=== PATIENT | female | born 1960 | race Caucasian/White ===

== ENCOUNTER 2016-10-05 08:23 | Inpatient (IN) | payer OTHER ==
[2016-09-19 11:00] VITALS: BMI 43.0
--- NOTE | 2016-09-19 11:33 | PAT Medication Instructions ---
Service Date Sep 19, 2016. Current Home Medication List Amitriptyline Hcl (Elavil), 50 MG PO BID Aspirin (Aspirin Ec), 81 MG PO QAM Baclofen (Lioresal), 10 MG PO TID Cholecalciferol (Vitamin D3), 1 TAB PO QAM Citalopram Hydrobromide (Celexa), 20 MG PO QAM Dicyclomine Hcl (Bentyl), 20 MG PO QAM Gabapentin (Neurontin), 800 MG PO TID Lorazepam (Ativan), 0.5 MG PO HS Mesalamine (Lialda), 2 TAB PO BID Montelukast Sodium (Singulair), 10 MG PO QAM Pantoprazole (Protonix), 40 MG PO QAM Temazepam (Restoril), 15 MG PO HS Medication Instructions For Your Scheduled Surgery - Check with surgeon/rake operator for instructions: Mesalamine (Lialda), 2 TAB PO BID - Hold the following medications the morning of surgery: Montelukast Sodium (Singulair), 10 MG PO QAM Dicyclomine Hcl (Bentyl), 20 MG PO QAM Cholecalciferol (Vitamin D3), 1 TAB PO QAM Baclofen (Lioresal), 10 MG PO TID - Take the following medications the morning of surgery with a sip of water: Pantoprazole (Protonix), 40 MG PO QAM Gabapentin (Neurontin), 800 MG PO TID Citalopram Hydrobromide (Celexa), 20 MG PO QAM Amitriptyline Hcl (Elavil), 50 MG PO BID Aspirin (Aspirin Ec), 81 MG PO QAM (unless otherwise okay per surgeon) - Take the following medications as scheduled the night before surgery: Temazepam (Restoril), 15 MG PO HS Lorazepam (Ativan), 0.5 MG PO HS Gabapentin (Neurontin), 800 MG PO TID Baclofen (Lioresal), 10 MG PO TID Amitriptyline Hcl (Elavil), 50 MG PO BID If you have any questions please call us at [phone] (Sadie Valenzuela PA-C) or [phone] or [phone]
[2016-09-19 12:27] LABS: BASO % 0.8 %; BASO ABS # 0.05 K/uL (0-0.2); COMPLETE YES; EOS % 4.1 %; HEMATOCRIT 38.7 % (37-47); IG% 0.5 %; LYMPH % 32.9 %; LYMPH ABS # 2.16 K/uL (1.2-3.4); MEAN CELL VOLUME 89.4 fL (80-100); MEAN CORPUSCULAR HEMOGLOBIN 29.3 pg (25-34); MEAN CORPUSCULAR HGB CONC 32.8 g/dl (32-36); NEUT % 56.7 %; PLATELET COUNT 331 K/uL (130-400); RED BLOOD COUNT 4.33 M/uL (4.2-5.4); WHITE BLOOD COUNT 6.56 K/uL (4.8-10.8)
[2016-09-19 12:29] LABS: URINE APPEARANCE CLEAR (CLEAR); URINE BILIRUBIN NEG (NEG); URINE COLOR YELLOW; URINE NITRITE NEG (NEG); URINE SPECIFIC GRAVITY 1.004 (1.000-1.030); UROBILINOGEN NEG (NEG)
[2016-09-19 12:46] LABS: MANUAL MICROSCOPIC REQUIRED? NO; REVIEW REQ? NO
[2016-09-19 12:56] LABS: BUN/CREATININE RATIO 12.7 (10-20); CALCIUM 8.9 mg/dl (8.5-10.1); CREATININE 0.75 mg/dl (0.60-1.20); POTASSIUM 4.3 mmol/L (3.5-5.1)
--- NOTE | 2016-10-03 12:32 | HISTORY & PHYSICAL EXAMINATION ---
DATE OF ADMISSION: 10/05/2016 The patient presents to our office with a complaint of right sciatica and chronic back pain. It has been ongoing for 3 years. It is progressively worsening. MEDICAL HISTORY: Significant for inflammatory bowel disease, obesity, spinal stenosis. SURGICAL HISTORY: Significant for bladder cancer in 2014 and hysterectomy. ALLERGIES: PENICILLIN. MEDICATIONS: Include pantoprazole 40 mg a day, baclofen 10 mg t.i.d., Lialda 1.2 grams 2 tablets twice a day, duloxetine HCL 60 mg a day, amitriptyline 50 mg twice a day, terbinafine 250 mg every other day for 3 months, gabapentin 800 mg t.i.d., vitamin D3, Zofran, Carafate 10 mg, temazepam 50 mg, Ativan 0.5 mg p.r.n. SOCIAL HISTORY: She does not work. She is . Denies alcohol. Denies tobacco. FAMILY HISTORY: Significant for diabetes, hypertension, high cholesterol. REVIEW OF SYSTEMS: Significant for chills, fatigue, night sweats, weakness, weight gain, ringing in ears, diarrhea, nausea, vomiting, anxiety, depression, difficulty walking, dizziness, poor coordination, memory loss and muscle weakness. PHYSICAL EXAMINATION: VITAL SIGNS: She is 5 foot 3, 230 pounds. HEENT: Speech appropriate. CARDIOPULMONARY: No gross abnormalities. ABDOMEN: Soft, nondistended. GENITOURINARY: Deferred. NEUROLOGIC: Cranial nerves II-XII grossly intact. MUSCULOSKELETAL: She ambulates with an antalgic gait. Strength is intact bilateral lower extremities. ASSESSMENT: Degenerative changes, chronic pain. PLAN: At this point in time, she has failed conservative therapy and may consider surgical intervention. Surgery would require lumbar decompression and fusion L4-L5 and L5-S1. Risks, benefits, pros, cons, and alternatives were outlined in detail. She would like to proceed with the above-mentioned surgical intervention.
[~2016-10-05] VITALS: Ht 162.6 cm; Wt 113.7 kg
--- NOTE | 2016-10-05 07:28 | History & Physical Bridge Note ---
H&P Re-Evaluation Bridge Note: I have examined the patient, reviewed the History & Physical and in the interval since the performance of the History & Physical I have noted the following changes of clinical significance: No changes noted
[~2016-10-05 08:23] MED LIST: AMT50 PO; ANCEF: ALLERGY NOTED TO ORDERED MEDICATION SCH; ASPI81TA28 PO; BACL10TA PO; CEFAZOLIN 2000 MG/60 ML D5W IV SCH; CHOL1000 PO; CITA20TA9 PO; DICY20TA35 PO; GABA800T PO; LACTATED RINGER'S 1000ML 1,000 ML IV SCH; LORA-741 PO; MESA1.2T PO; MONT1TAB3 PO; PANT40TA PO; TEMA15CA4 PO
[2016-10-05 09:24] VITALS: BP 112/63; PULSE 77; TEMP 37.1; O2SAT 96; Ht 162.6 cm; Wt 113.7 kg
[2016-10-05] MEDS ORDERED: ROCURONIUM BROMIDE 10 MG/ML 5 ML VIAL ONE (11:20)
[2016-10-05] MEDS ORDERED: DEXAMETHASONE SOD INJ 4 MG/ML VIAL ONE (11:20)
[2016-10-05] MEDS ORDERED: LIDOCAINE HCL 2% 2 ML VIAL (20MG/ML) ONE (11:20)
[2016-10-05] MEDS ORDERED: ONDANSETRON INJ 2 MG/ML 2 ML VIAL ONE (11:20)
[2016-10-05] MEDS ORDERED: ETOMIDATE 2 MG/ML 20 ML VIAL IV ONE (11:20)
[2016-10-05] MEDS ORDERED: MIDAZOLAM HCL 1 MG/ML 2ML VIAL ONE (11:21)
[2016-10-05] MEDS ORDERED: FENTANYL CITRATE INJ 50 MCG/1 ML 2 ML VIAL ONE (11:21)
[2016-10-05] MEDS ORDERED: NURSING VERBAL MED ORDER ONE (12:00)
[2016-10-05] MEDS ORDERED: CLINDAMYCIN IV 900 MG in DEXTROSE 5% ADD-VANTAGE 100ML 100 ML IV SCH (12:15)
[2016-10-05] MEDS ORDERED: HYDROmorphone INJ 2 MG/ML SYR/VIAL ONE (12:16)
[2016-10-05] MEDS ORDERED: FENTANYL CITRATE INJ 50 MCG/1 ML 2 ML VIAL IV PRN (13:00)
[2016-10-05] MEDS ORDERED: ONDANSETRON INJ 2 MG/ML 2 ML VIAL IV PRN ×2 (13:00→14:15)
[2016-10-05] MEDS ORDERED: ATROPINE SULFATE 0.1 MG/ML 5ML SYR IV PRN (13:00)
[2016-10-05] MEDS ORDERED: EpHEDrine SULFATE INJ 50 MG/ML AMP IV PRN (13:00)
[2016-10-05] MEDS ORDERED: HYDROmorphone INJ 1 MG/ML SYR IV PRN (13:00)
[2016-10-05] MEDS ORDERED: NEOSTIGMINE METHYLSULFATE 5 MG/5 ML SYR ONE (13:57)
[2016-10-05] MEDS ORDERED: GLYCOPYRROLATE INJ 0.2 MG/ML VIAL ONE (13:57)
[2016-10-05] MEDS ORDERED: SODIUM CHLORIDE 0.9% 1000ML 1,000 ML IV SCH (14:03)
--- NOTE | 2016-10-05 14:03 | [facility] Post Operative Brief Note ---
Immediate Operative Summary Operative Date Oct 05, 2016. Pre-Operative Diagnosis Degenerative changes, chronic pain Post-Operative Diagnosis Degenerative changes, chronic pain Procedure(s) Performed tlif Surgeon DR. Emerson Hernandez Stock Or Delivery Clerk Surgeon(s) Anitha Hess PA-C Estimated Blood Loss 200 Findings stenosis Specimens none per surgeon
[2016-10-05] MEDS ORDERED: LABETALOL HCL IV 5 MG/ML 20ML ONE (14:07)
--- NOTE | 2016-10-05 14:11 | DIAGNOSTIC IMAGING REPORT ---
LUMBAR SPINE, INTRAOPERATIVE FLUOROSCOPY HISTORY: L4 S1 decompression and fusion. FLUOROSCOPY TIME: 17 seconds. FINDINGS: Intraoperative fluoroscopy was provided for the lumbar spine. 2 fluoroscopic spot images were obtained. Posterior decompression fusion from L4 through S1 with pedicle screws and rods. The hardware appears intact. IMPRESSION: Fluoroscopy provided for a L4-S1 posterior decompression and fusion. Electronically signed by: Willem Monsalve M.D. 10/05/2016 2:10 PM Dictated Date/Time: 10/05/2016 2:09 PM
[2016-10-05] MEDS ORDERED: FLOSEAL HEMOSTATIC MATRIX 10ML TOP ONE (14:12)
[2016-10-05] MEDS ORDERED: BUPIVACAINE/EPINEPHRINE 0.5% MPF 1:200,000 30 ML VIAL INJ ONE (14:12)
[2016-10-05] MEDS ORDERED: BACITRACIN 50000 UNIT VIAL IR ONE (14:12)
[2016-10-05] MEDS ORDERED: MAGNESIUM HYDROXIDE SUSP 30 ML UDC PO PRN (14:15)
[2016-10-05] MEDS ORDERED: ACETAMINOPHEN IV 100 ML IV PRN (14:15)
[2016-10-05] MEDS ORDERED: SOD PHOSPHATE/SOD BIPHOSPHATE ENEMA 132 ML BTL PR PRN (14:15)
[2016-10-05] MEDS ORDERED: ACETAMINOPHEN 500 MG TAB PO PRN (14:15)
[2016-10-05] MEDS ORDERED: DO NOT ADMINISTER FLU VACCINE PRN ×3 (14:15)
[2016-10-05] MEDS ORDERED: METOCLOPRAMIDE HCL INJ 5 MG/ML 2 ML VIAL IV PRN (14:15)
[2016-10-05] MEDS ORDERED: NALOXONE HCL 0.4 MG/1 ML VIAL/CARP IV PRN ×2 (14:15)
[2016-10-05] MEDS ORDERED: FAMOTIDINE 20 MG TAB PO PRN (14:15)
[2016-10-05] MEDS ORDERED: BISACODYL 10 MG SUPP PR PRN (14:15)
[2016-10-05] MEDS ORDERED: ALUMINUM/MAGNESIUM SUSP 30 ML UDC PO PRN (14:15)
[2016-10-05] MEDS ORDERED: DO NOT ADMINISTER PNEUMOCOCCAL VACCINE PRN ×2 (14:15)
[2016-10-05] MEDS ORDERED: PROMETHAZINE HCL INJ 12.5 MG in SODIUM CHLORIDE 0.9% 50ML 50 ML IV PRN (14:15)
[2016-10-05] MEDS ORDERED: LORAZEPAM 0.5 MG TAB PO PRN (14:15)
[2016-10-05] MEDS ORDERED: LORAZEPAM INJ 0.5 MG in SYRINGE 0.75 ML IV PRN (14:15)
[2016-10-05] MEDS ORDERED: hydrOXYzine HCL 25 MG TAB PO PRN (14:15)
--- NOTE | 2016-10-05 14:28 | OPERATIVE REPORT ---
DATE OF OPERATION: 10/05/2016 PREOPERATIVE DIAGNOSES: Spinal stenosis, spondylolisthesis L5-S1. POSTOPERATIVE DIAGNOSIS: Same. PROCEDURE PERFORMED: 1. Lumbar decompression, medial facetectomy, and foraminotomy L3-4, L4-5, L5-S1. 2. Posterior spinal fusion L4-5, L5-S1. 3. Placement posterior segmental instrumentation using Orthros rods and screws, a crosslink L4-5 and L5-S1. 4. Interbody fusion L5-S1. 5. Placement of PEEK cage 12 x 26 mm L5-S1. 6. Placement of locally harvested morselized autograft posterior gutters. 7. Placement of Infuse collagen sponge combined with Mastergraft in posterior gutters and Lindy bone graft in the interbody space. SURGEON: Dr. Emerson Hernandez. CHEMISTRY ACCOUNT MANAGER: Anitha Tapia PA-C. ANESTHESIA: General. DISPOSITION: The patient awakened and taken to PACU in stable condition. HISTORY OF PATIENT'S PROBLEMS: This is a 56-year-old female that presents with above-mentioned diagnosis after failing an extensive course of nonoperative care, elected to undergo the above-mentioned procedure. Risks, benefits, pros, cons, and alternatives were outlined in detail preoperatively. PROCEDURE: The patient was met with preoperatively, case discussed and all questions were addressed. At that point the patient was taken back to operative suite and after undergoing successful general endotracheal intubation via department of anesthesia, she was placed in prone position on Ced table atop a Marvin frame. All bony prominences were padded and the eyes were inspected to ensure there was no external pressure placed upon them. At this point, lumbar spine was prepped and draped in normal sterile fashion. Sharp dissection with the assistance of Bovie cautery performed down to and exposing the lamina and transverse processes of L4, L5 and sacral ala bilaterally. From a caudal to cephalad fashion, complete laminectomy of L5, L4 and partial laminectomy of L3 was performed addressing severe lateral recess and foraminal stenosis. There is particularly marked facet hypertrophy at the L5-S1 level and did of her spondylolisthesis. Pedicle screws. Screws were then placed in L4, L5 and S1 levels bilaterally with the assistance of fluoroscopy and appropriate size julio provisionally placed. Through a transforaminal approach on the right, a complete diskectomy of L5-S1 was performed, endplates curetted to subcortical bleeding bone and a 12 x 26 mm PEEK cage filled with Lindy bone grafting tapped into position. The rods were then locked into final position bilaterally and transverse processes of L4, L5 and S1 levels burred to subcortical bleeding bone. Infuse collagen sponge combined with Mastergraft and locally harvested morselized autograft was placed in the posterior gutters, crosslink locked into position, 7 flat BAMBI drain inserted. Incision was closed with 1-0 Vicryl in the fascia, 2-0 Vicryl subcutaneously, 4-0 Monocryl for final skin closure. Steri-Strips and sterile dressing placed. The patient was awakened and taken to PACU in stable condition. Please note Anitha Tapia was present throughout the entire surgical procedure. Due to the complex nature of the procedure, the entire surgery was performed with the psychiatric nursing assistant of BAMBI Che. The accounting administrative assistant, under direct supervision, was involved in the actual performance of all aspects of the surgical procedure including hemostasis, tissue retraction and incision, instrument management, patient positioning, and wound closure. I attest to the content of the Intraoperative Record and any orders documented therein. Any exceptio ns are noted below.
[2016-10-05] MEDS: HYDROmorphone HCL 0.5MG/ML 50 ML CASSETTE IV PRN ×3 (14:45→19:11)
--- NOTE | 2016-10-05 15:35 | Anesthesiology Progress Note ---
Anesthesia Post Op Note Date & Time Oct 05, 2016 at 15:35 Vital Signs Pain Intensity: 0 Vital Signs Past 12 Hours Date Time Temp Pulse Resp B/P Pulse Ox O2 Delivery O2 Flow Rate FiO2 10/05/16 15:25 80 16 98 10/05/16 15:25 80 16 10/05/16 15:20 78 16 96 10/05/16 15:20 79 16 10/05/16 15:15 81 16 10/05/16 15:15 81 16 119/82 97 10/05/16 15:14 84/67 10/05/16 15:11 37.1 10/05/16 15:10 81 16 97 10/05/16 15:10 81 16 10/05/16 15:09 80 16 10/05/16 15:09 79 16 97 10/05/16 15:08 129/76 10/05/16 15:04 82 16 97 10/05/16 15:04 81 16 10/05/16 15:03 135/60 10/05/16 14:59 83 14 97 10/05/16 14:59 83 14 10/05/16 14:58 127/60 10/05/16 14:54 90 20 97 10/05/16 14:54 86 20 10/05/16 14:53 85 16 98 10/05/16 14:53 85 16 10/05/16 14:48 86 18 10/05/16 14:48 86 18 142/73 99 10/05/16 14:43 89 15 10/05/16 14:43 89 15 132/84 99 10/05/16 14:38 89 20 10/05/16 14:38 89 20 128/78 99 10/05/16 14:33 93 20 132/66 100 10/05/16 14:33 93 20 10/05/16 14:28 97 14 152/91 99 10/05/16 14:28 97 14 10/05/16 14:28 36.8 96 14 141/89 99 Mask 10 10/05/16 09:24 37.1 77 18 112/63 96 Room Air Notes Mental Status: alert / awake / arousable, participated in evaluation Pt Amnestic to Procedure: Yes Nausea / Vomiting: adequately controlled Pain: adequately controlled Airway Patency, RR, SpO2: stable & adequate BP & HR: stable & adequate Hydration State: stable & adequate Anesthetic Complications: no major complications apparent
[2016-10-05 18:15] VITALS: BP 113/62; PULSE 65; TEMP 36.4; O2SAT 98
[2016-10-05 18:48] VITALS: BP 120/66; PULSE 65; TEMP 36.5; O2SAT 96
[2016-10-05] MEDS: LACTATED RINGER'S 1000ML 1,000 ML IV SCH (19:31)
[2016-10-05 19:46] VITALS: BP 106/65; PULSE 71; TEMP 36.5; O2SAT 98
[2016-10-05] MEDS: CLINDAMYCIN IV 600 MG in DEXTROSE 5% ADD-VANTAGE 50ML 50 ML IV SCH (20:18)
[2016-10-05] MEDS: DEXAMETHASONE INJ 6 MG in SYRINGE 0 ML IV SCH (20:18)
[2016-10-05] MEDS: BACLOFEN 10 MG TAB PO SCH (20:18)
[2016-10-05] MEDS: TEMAZEPAM 15 MG CAP PO SCH (20:29)
[2016-10-05] MEDS: GABAPENTIN 800 MG TAB PO SCH (20:30)
[2016-10-05] MEDS: AMITRIPTYLINE HCL 50 MG TAB PO SCH (20:30)
[2016-10-05] MEDS: DOCUSATE SODIUM/SENNA 50/8.6MG TAB PO SCH (20:31)
[2016-10-05 21:00] VITALS: BP 121/66; PULSE 81; TEMP 36.6; O2SAT 96
[2016-10-05 23:35] VITALS: BP 126/72; PULSE 86; TEMP 36.9; O2SAT 96
[2016-10-06] MEDS: LACTATED RINGER'S 1000ML 1,000 ML IV SCH (02:54)
[2016-10-06 03:45] VITALS: BP 117/71; PULSE 82; TEMP 37.1; O2SAT 95
[2016-10-06] MEDS: CLINDAMYCIN IV 600 MG in DEXTROSE 5% ADD-VANTAGE 50ML 50 ML IV SCH (03:55)
[2016-10-06] MEDS: DEXAMETHASONE INJ 6 MG in SYRINGE 0 ML IV SCH ×2 (03:55→11:49)
[2016-10-06] MEDS ORDERED: DC PCA ONE (06:00)
[2016-10-06] MEDS ORDERED: HYDROmorphone INJ 1 MG/ML SYR IV PRN (06:01)
[2016-10-06 07:13] LABS: COMPLETE YES; HEMATOCRIT 38.6 % (37-47); IG% 0.6 %; LYMPH % 6.4 %; LYMPH ABS # 1.04 K/uL (1.2-3.4); MEAN CELL VOLUME 90.2 fL (80-100); MEAN CORPUSCULAR HEMOGLOBIN 29.9 pg (25-34); MEAN CORPUSCULAR HGB CONC 33.2 g/dl (32-36); MEAN PLATELET VOLUME 9.1 fL (7.4-10.4); MONO % 1.3 %; NEUT % 91.7 %; PLATELET COUNT 351 K/uL (130-400); RED BLOOD COUNT 4.28 M/uL (4.2-5.4); WHITE BLOOD COUNT 16.34 K/uL (4.8-10.8)
[2016-10-06 07:41] VITALS: BP 110/73; PULSE 83; TEMP 37; O2SAT 94
[2016-10-06 07:51] LABS: BUN/CREATININE RATIO 18.6 (10-20); CALCIUM 8.6 mg/dl (8.5-10.1); CREATININE 0.72 mg/dl (0.60-1.20); POTASSIUM 4.2 mmol/L (3.5-5.1)
[2016-10-06] MEDS: DICYCLOMINE HCL 20 MG TAB PO SCH (08:07)
[2016-10-06] MEDS: OXYCODONE HCL IR 5 MG TAB (IMMEDIATE RELEASE) PO PRN ×3 (08:07→20:02)
[2016-10-06] MEDS: GABAPENTIN 800 MG TAB PO SCH ×3 (08:07→20:03)
[2016-10-06] MEDS: PANTOprazole SOD 40 MG TAB PO SCH (08:07)
[2016-10-06] MEDS: AMITRIPTYLINE HCL 50 MG TAB PO SCH ×2 (08:07→20:03)
[2016-10-06] MEDS: ASPIRIN 81 MG ECTAB PO SCH (08:07)
[2016-10-06] MEDS: BACLOFEN 10 MG TAB PO SCH ×3 (08:08→20:03)
[2016-10-06] MEDS: MONTELUKAST SOD 10 MG TAB PO SCH (08:08)
[2016-10-06] MEDS: CITALOPRAM 20 MG TAB PO SCH (08:08)
[2016-10-06] MEDS ORDERED: RXC5 PO (08:23)
--- NOTE | 2016-10-06 08:24 | Discharge Instructions ---
Discharge Instructions Admission Reason for Admission: Lumbar Spinal Stenosis Discharge Discharge Diagnosis / Problem: stenosis Discharge Goals Goal(s): Improve function Activity Recommendations Activity Limitations: per Instructions/Follow-up section ACTIVITY RECOMMENDATIONS: SELF CARE INSTRUCTIONS AFTER THORACIC/LUMBAR FUSIONS 1. You may walk to your tolerance. It is good exercise for your legs and back. Expect some back and intermittent leg aches and pains. 2. You may perform "counter-top" level activities (make a sandwich, emmett with a project, etc.). 3. No bending or lifting of more than 10 pounds or back twisting of any nature (roll like a log when turning in bed). 4. You may ride in a car for 20-30 minutes at a time. No driving until after your first visit with your doctor. 5. Frequent changes of position and restricting sitting to 30 minutes at a time will help limit the amount of back spasms and stiffness you may experience. 6. You may discontinue the use of ambulatory aids (cane, crutches, etc.) once your strength and confidence allow. 7. You may adjunct psychology instructor the shower and let water strike your incision when you arrive home at least once daily. Do not take a tub bath, sit in a hot tub or go into a swimming pool until after your first recheck in the office. SPECIAL CARE INSTRUCTIONS: VERY IMPORTANT TO READ AND REVIEW A. Your surgical incision has been closed with a cosmetic suture under the skin that will dissolve in about 6 weeks. In 14 days, you can use a pair of clean scissors and cut the suture that is left outside of the skin at the ends of your incision. 1. The small skin tapes can be removed 7 days after surgery if they have not fallen off by that point. 2. You may keep the wound open to air as much as possible to promote healing after post-op day number 5 unless told otherwise by your doctor. 3. If you think the wound looks like it is becoming infected (redness or worsening drainage) and/or you are experiencing fever, chill or worsening back pain and muscle spasms, contact the office so that we may evaluate you as soon as possible. B. Complications are uncommon, but please contact us if you have any signs or symptoms of: 1. wound infection (fever higher than 102.5 degrees F, redness, separation of wound, drainage, or increasing pain from the incision) 2. blood clots in legs (pain, swelling, redness and warmth in legs) 3. urinary tract infection (fever higher than 102.5 degrees F, burning upon urination or increased frequency of urination) 4. nerve problems (inability to walk on your toes or heels, numbness, loss of bowel or bladder control) 5. any other symptoms that concern you C. Please call the office at if you have any concerns or questions about your operation or recovery. D. No smoking! Smoking drastically decreases the chance of a solid fusion. E. Do not take any anti-inflammatory medications (Indocin, Advil, Motrin, Aspirin, Naprosyn, etc.) as these may inhibit the chance of a solid fusion. Tylenol is okay to take for pain. MANAGING PAIN AFTER SPINAL SURGERY 1. Narcotic medication is intended for short-term use and will be provided for surgical pain. Surgical pain usually lasts for a period of 4-6 weeks. Narcotic medication includes Percocet, Vicodin, Darvocet, Tylenol #3 or Lortab. 2. Longer-term pain is more appropriately treated with non-narcotic medication such as Tylenol ES. 3. Muscle spasm is not appropriately treated with narcotics. Muscle relaxers such as Soma, Flexeril or Skelaxin can be used along with Tylenol ES. 4. Remember that we all live with some "aches and pains". This is not unusual or uncommon after an injury or as we get older. a. Back pain is expected and may include muscle spasms for 4 to 6 weeks after surgery. The pain should gradually improve. If the pain worsens for no apparent reason, please contact the office. b. Intermittent leg pain may also be experienced and should not be concerned about unless it worsens for no apparent reason. If so, please contact the office. 5. We will provide appropriate medication within the normal guidelines of their prescribed use. We will also be very cautious and aware of potential abuse and extended duration of patients' medication needs. a. Pain medications are for your comfort and to assist with sleep and rest so that the tissue can heal. They are not provided in order to return to normal activity and should not be used through the day. To do so or worsening pain at night can result from ongoing tissue damage and development of tolerance to the prescribed medicine. 6. Please allow 2-3 days to process refills. Prescriptions will not be mailed but must be picked up at the office. FOLLOW UP VISIT: Keep your scheduled follow-up appointment. Any questions, please call the office at . . Current Hospital Diet Patient's current hospital diet: Regular Diet Discharge Diet Recommended Diet: Regular Diet Procedures Procedures Performed: L4-5, L5-S1 Lumbar Decompression/Laminectomy, Discectomy, Placement of Interbody Spacer L5-S1, Pedicle Screw Fixation of Bone Graft, with Lindy Allograft, Application of Bone Morphogenetic Protein, and Posterolateral Gutter Fusion Pending Studies Studies pending at discharge: no Medical Emergencies . Who to Call and When: Medical Emergencies: If at any time you feel your situation is an emergency, please call 911 immediately. . Non-Emergent Contact Non-Emergency issues call your: Primary Care Provider . "Provider Documentation" section prepared by Emerson Hernandez. VTE Core Measure Inpt VTE Proph given/why not?: Gunjan Hutton, RAS[facility]
--- NOTE | 2016-10-06 08:56 | Anesthesiology Progress Note ---
Anesthesia Post Op Note Date & Time Oct 06, 2016 at 08:55 Vital Signs Pain Intensity: 10.0 Vital Signs Past 12 Hours Date Time Temp Pulse Resp B/P Pulse Ox O2 Delivery O2 Flow Rate FiO2 10/06/16 08:00 Room Air 10/06/16 07:41 37.0 83 16 110/73 94 Room Air 10/06/16 03:45 37.1 82 16 117/71 95 Nasal Cannula 4.0 10/05/16 23:35 36.9 86 16 126/72 96 Nasal Cannula 4.0 10/05/16 21:00 36.6 81 16 121/66 96 Nasal Cannula 4.0 Notes Mental Status: alert / awake / arousable, participated in evaluation Pt Amnestic to Procedure: Yes Nausea / Vomiting: adequately controlled Pain: adequately controlled Airway Patency, RR, SpO2: stable & adequate BP & HR: stable & adequate Hydration State: stable & adequate Anesthetic Complications: no major complications apparent
[2016-10-06 10:04] VITALS: BP 130/77; PULSE 94; O2SAT 94
[2016-10-06] MEDS ORDERED: NURSING VERBAL MED ORDER ONE (10:15)
--- NOTE | 2016-10-06 14:15 | PROGRESS NOTE ---
DATE: 10/06/2016 Postop day #1. Back pain controlled. Leg pain improved. Vital signs stable. T-max 37.1. BAMBI drained 175 mL. Hematocrit this a.m. is 38.6. PHYSICAL EXAMINATION: The patient has good strength to testing. Appears comfortable. ASSESSMENT: Status post multilevel lumbar decompression and fusion. PLAN: At this time, will continue physical therapy, advance her bowel regimen and anticipate home latter half of this weekend with home health.
[2016-10-06 15:23] VITALS: BP 132/61; PULSE 89; TEMP 37.1; O2SAT 95
[2016-10-06 16:15] VITALS: O2SAT 95
[2016-10-06] MEDS: DOCUSATE SODIUM/SENNA 50/8.6MG TAB PO SCH (20:03)
[2016-10-06] MEDS: TEMAZEPAM 15 MG CAP PO SCH (20:05)
[2016-10-06 23:10] VITALS: BP 102/68; PULSE 86; TEMP 36.9; O2SAT 91
[2016-10-07] MEDS: OXYCODONE HCL IR 5 MG TAB (IMMEDIATE RELEASE) PO PRN ×3 (04:45→12:27)
[2016-10-07] MEDS: POLYETHYLENE (MIRALAX) 17 GM PACK PO SCH ×2 (04:45→12:00)
[2016-10-07 07:39] VITALS: BP 125/67; PULSE 86; TEMP 36.9; O2SAT 100
[2016-10-07] MEDS: GABAPENTIN 800 MG TAB PO SCH (08:31)
[2016-10-07] MEDS: MONTELUKAST SOD 10 MG TAB PO SCH (08:31)
[2016-10-07] MEDS: PANTOprazole SOD 40 MG TAB PO SCH (08:31)
[2016-10-07] MEDS: AMITRIPTYLINE HCL 50 MG TAB PO SCH (08:31)
[2016-10-07] MEDS: ASPIRIN 81 MG ECTAB PO SCH (08:31)
[2016-10-07] MEDS: DICYCLOMINE HCL 20 MG TAB PO SCH (08:31)
[2016-10-07] MEDS: BACLOFEN 10 MG TAB PO SCH (08:31)
[2016-10-07] MEDS: CITALOPRAM 20 MG TAB PO SCH (08:31)
[2016-10-07 10:00] VITALS: BP 125/67; PULSE 86; TEMP 36.9; O2SAT 100
--- NOTE | 2016-10-07 11:36 | DISCHARGE SUMMARY ---
PRINCIPAL DIAGNOSIS: Spinal stenosis. HOSPITAL COURSE FOLLOWS: On October 05, patient underwent multilevel lumbar decompression and fusion, tolerated this well and taken to the orthopedic floor postoperatively. Postop day #1, she was up and ambulatory, tolerating physical therapy well, progressed to postop day #2. Subsequently was discharged home with home health. Discharge orders and instructions found on the chart for further review.
== END 2016-10-07 12:50 | disposition home health service (06) | DRG 460 ==
LOC: ENRESERVTM → ENRESERVDT → C.ACU 08:23 → C.MSW 11:00
PROVIDERS: ADMIT Orthopaedic Surgery Orthopaedic Surgery of the Spine; ATTEND Orthopaedic Surgery Orthopaedic Surgery of the Spine
PROC: 0ST40ZZ Resection of Lumbosacral Disc, Open Approach (ICD-10-PCS; principal; 2016-10-05 11:00)
PROC: 0SG30A1 (ICD-10-PCS; principal; 2016-10-05 11:00)
PROC: 3E0U0GB Introduction of Recombinant Bone Morphogenetic Protein into Joints, Open Approach (ICD-10-PCS; principal; 2016-10-05 11:00)
PROC: 0SG00J1 Fusion of Lumbar Vertebral Joint with Synthetic Substitute, Posterior Approach, Posterior Column, Open Approach (ICD-10-PCS; principal; 2016-10-05 11:00)
DX: M48.07 Spinal stenosis, lumbosacral region (principal); E66.9 Obesity, unspecified; M43.17 Spondylolisthesis, lumbosacral region; Z85.51 Personal history of malignant neoplasm of bladder; Z83.3 Family history of diabetes mellitus; Z82.49 Family history of ischemic heart disease and other diseases of the circulatory system

== ENCOUNTER 2024-07-29 16:51 | Observation (INO) ==
--- NOTE | 2024-07-29 17:40 | Emergency Department Note ---
Impression & Plan Generalized weakness, Ambulatory dysfunction ED Provider Note HISTORY OF PRESENT ILLNESS: Patient is a 64-year-old female presenting with reported strokelike symptoms. Patient reports she has a history of a pinched nerve in her neck and she supposed to get surgery but was instructed she needed to try pain management plan of care first. She states that she has been on a pain medication and muscle relaxers which only intermittently seem to help her symptoms. Reports that in the last few weeks she has been having increasing weakness and numbness in her right upper extremity. States that today she has been dropping things frequently with her right upper extremity. Reports difficulties ambulating, and states that she often stays in bed for most days secondary to her difficulties walking. She states that this is been ongoing for weeks. She denies any chest pain or shortness of breath. Denies any recent head injury. She does report that she sometimes falls secondary to her weakness, but her most recent fall was a few days ago. Denies any bowel or bladder incontinence. She is on a baby aspirin daily. ROS: as above PHYSICAL EXAM: Constitutional: Patient appears in no acute distress. HENT: Head: Normocephalic and atraumatic. Eyes: EOMI, PERRL Mouth/Throat: Mucous membranes moist. Neck: Trachea midline. Neck supple. Cardiovascular: RRR, No murmurs, rubs or gallops. Intact distal pulses. Pulmonary/Chest: No respiratory distress. Breath sounds clear and equal bilaterally. No wheezes or rales. Abdominal: Abdomen soft, no tenderness, rebound or guarding. Musculoskeletal: No edema, tenderness or deformity noted. Skin: Warm and dry. No rash, erythema, pallor or cyanosis Psychiatric: Appropriate mood and affect for situation. Neurological: Alert and keenly responsive. Facies symmetric. Able to raise eyebrows, close eyes, smile, puff mouth, stick out tongue, move tongue left and right and raise palate symmetrically. Able to shrug shoulders. PERRLA. SILT to forehead below eye and at jawline. Can hear soft noise bilaterally. Strength 5/5 in bilateral upper and lower extremities. SILT throughout bilateral upper and lower extremities. MDM: - Vitals signs stable - History obtained via patient. History as above. - Chronic conditions affecting care: cervical stenosis of the spinal canal; HLD; HTN; GERD; depression/anxiety; hx of TIA - Differential diagnoses include, but are not limited to: CVA; intracranial hemorrhage; deconditioning; UTI; electrolyte abnormality; ACS - Order placed for continuous cardiac monitoring. At this time, monitor showed rate of 82 bpm with normal sinus rhythm, per my interpretation. - External medical records reviewed. Primary care visit note dated 07/23/2024 was reviewed. Patient was prescribed Flexeril and 10 tabs of Vicodin for her neuroforaminal stenosis of the cervical spine. She follows with pain management for her cervical radiculopathy and is recommended to have a C7-T1 interlaminal epidural steroid injection. - EKG interpreted by myself showed normal sinus rhythm. Rate 80 bpm. QT 362. No acute ischemic changes. - Laboratory workup interpreted by myself showed normal WBC; normal PT/INR; stable electrolytes; normal troponin - UA negative for infection - CT head wo contrast negative for acute pathology - CTA head/neck negative for acute abnormality - Patient ambulated with nursing staff in the emergency department, but was slightly unsteady on her feet and felt a little bit dizzy. Family expresses concern about patient's ability to go home, given that she has been unable to get up out of bed most days this week. Patient may benefit from MRI of the brain and further strokelike/TIA workup and PT/OT assessment. - Discussion was had with oil field caser about patient's case and need for admission - Hospitalist consulted for admission - [facility] and [facility] ASSESSMENT AND PLAN: Diagnosis: Generalized weakness; ambulatory dysfunction Plan: admit Past Med/Surg History Problem List (Updated 07/29/24 @ 21:17 by Marisabel Rivers MD) Ambulatory dysfunction (Acute) Generalized weakness (Acute) Dizziness Neuroforaminal stenosis of cervical spine R C4-5 - severe Cervical post-laminectomy syndrome Cervical radiculopathy Upper abdominal pain Restless leg syndrome Neuropathy, lower extremity Numbness and tingling in both hands Acute sinusitis Abnormal CT lung screening Routine health maintenance Insomnia Depression with anxiety Tobacco use Obesity (BMI 30-39.9) Encounter for pre-operative examination Neuropathy Hyperlipidemia GERD (gastroesophageal reflux disease) Depression Anxiety Diverticular disease S/P tonsillectomy and adenoidectomy (Acute) Lumbar stenosis with neurogenic claudication Hx of cholecystectomy (Acute) Hx of appendectomy (Acute) H/O: hysterectomy (Acute) Diverticulitis (Acute) Cervical stenosis of spinal canal Bladder cancer (Acute) Medical History Hx-TIA (transient ischemic attack) 2013 or 2014, after bladder cancer procedure, "was a little lop sided after the surgery, said she may have had a mini-stroke," sent to therapy to help with the weakness on the right side RLS (restless legs syndrome) Neuropathy Insomnia Hyperlipidemia GERD (gastroesophageal reflux disease) Depression with anxiety Lung abnormality "spot" found on imaging in 2022, monitoring yearly w/ Cervical stenosis of spinal canal Degenerative disc disease Osteoarthritis Lumbar stenosis with neurogenic claudication Cervical stenosis of spinal canal Bladder cancer , chemo Surgical History Hx of cervical spine surgery 2022, C5-C7; ROM is fine History of tooth extraction History of carpal tunnel release right History of esophagogastroduodenoscopy (EGD) History of colonoscopy History of endoscopic sinus surgery History of lumbar surgery ~, "the last 3 discs in her back" S/P tonsillectomy and adenoidectomy History of appendectomy H/O: hysterectomy Family History Denies family history of Ovarian cancer Prostate cancer Diabetes Myocardial infarction Breast cancer Colorectal cancer Hypertension Social History Smoking Status: Current every day smoker Tobacco Type: Cigarettes Age Started Using Tobacco: 15; packs per day: 0.5; Cigarettes Per Day: 10; Second Hand Exposure: No; Do You Dip or Chew Tobacco: No; Hx Alcohol Use: Yes (quit ~10 years ago) Hx Substance Use: Yes Last Used Substance Other:: occasional use of marijuana 6 months ago; others in her teens only Preferred Language: Sinhala Communication Ability: Effective Editor Map Required: No Beliefs That Will Affect Care: None Current Living Situation: Spouse and Family Feels Safe at Home: Yes Assistive Devices: Denture - Upper, Denture - Lower and Glasses Allergies Allergies Allergy/AdvReac Type Severity Reaction Status Date / Time Penicillins Allergy Severe Anaphylaxis Verified 07/29/24 20:38 Egg Derived Allergy Unknown Hives, Verified 07/29/24 20:38 itching tramadol Allergy Unknown Pruritis Verified 07/29/24 20:38 Home Meds Home Medications Medication Instructions Recorded Confirmed aspirin 81 mg tablet,delayed 81 mg PO QAM 03/21/23 07/29/24 release cholecalciferol (vitamin D3) 125 125 mcg PO QAM 03/21/23 07/29/24 mcg (5,000 unit) tablet (Vitamin D3) cyanocobalamin (vitamin B-12) 500 500 mcg PO QAM 03/21/23 07/29/24 mcg tablet docusate sodium 100 mg capsule 200 mg PO BID 03/21/23 07/29/24 (Stool Softener) duloxetine 60 mg capsule,delayed 60 mg PO QAM 03/21/23 07/29/24 release gabapentin 300 mg capsule 600 mg PO TID 03/21/23 07/29/24 [id number] 1 tab PO QAM 03/21/23 07/29/24 fumarate 18 mg-folic acid 400 mcg tablet (One-A-Day Women's Complete) pantoprazole 40 mg tablet,delayed 40 mg PO QAM 03/21/23 07/29/24 release turmeric 150 mg-herbal complex 1 cap PO QAM 03/21/23 07/29/24 no.278 capsule famotidine 20 mg tablet 20 mg PO QAM 02/27/24 07/29/24 Previous Rx's Medication Instructions Recorded celecoxib 200 mg capsule (Celebrex) 200 mg PO DAILY #14 caps 05/13/24 montelukast 10 mg tablet 10 mg PO QAM #90 tabs 05/13/24 diazepam 5 mg tablet 5 mg PO .COMPLEX #3 tabs 06/26/24 amitriptyline 100 mg tablet 100 mg PO TID #90 tabs 07/07/24 trazodone 50 mg tablet 50 - 100 mg (1 - 2 x 50 mg) PO HS 07/16/24 PRN insomnia #30 tabs atorvastatin 20 mg tablet (Lipitor) 20 mg PO QAM #90 tabs 07/23/24 cyclobenzaprine 10 mg tablet 10 mg PO TID PRN muscle spasm #30 07/24/24 tabs hydrocodone 5 mg-acetaminophen 325 1 tab PO Q6H PRN pain #10 tabs 07/24/24 mg tablet Results & Data (ED) Vital Signs Vital Signs - 24 hr 07/29/24 16:55 07/29/24 17:50 07/29/24 18:40 Temperature 36.8 C Temperature Source Temporal Artery Scan Pulse Rate 90 84 82 Pulse Rate [Apical] Pulse Rhythm Regular Pulse Rhythm [Apical] Pulse Strength [Apical] Respiratory Rate 14 14 Respiratory Effort / Characteristics Non-Labored Respiratory Depth Normal Respiratory Pattern Regular Blood Pressure 122/54 L Blood Pressure [Right Arm] Blood Pressure Mean 76 Blood Pressure Mean [Right Arm] Blood Pressure Position [Right Arm] Pulse Oximetry 94 95 Oxygen Delivery Method Room Air Room Air Sepsis Recent Fever Within 48 Hours No Sepsis New/Unexplained Change in Mental Status N/A Sepsis Action Taken by Nursing No Action Required 07/29/24 18:41 Temperature Temperature Source Pulse Rate Pulse Rate [Apical] 81 Pulse Rhythm Pulse Rhythm [Apical] Regular Pulse Strength [Apical] Normal Respiratory Rate 14 Respiratory Effort / Characteristics Non-Labored Respiratory Depth Normal Respiratory Pattern Regular Blood Pressure Blood Pressure [Right Arm] 130/89 Blood Pressure Mean Blood Pressure Mean [Right Arm] 102 Blood Pressure Position [Right Arm] Lying Pulse Oximetry 94 Oxygen Delivery Method Room Air Sepsis Recent Fever Within 48 Hours Sepsis New/Unexplained Change in Mental Status Sepsis Action Taken by Nursing Laboratory Data 07/29/24 17:31 07/29/24 17:31 Lab Results 07/29/24 07/29/24 Range/Units 17:31 19:30 WBC 8.19 (4.8-10.8) K/ul RBC 3.95 L (4.20-5.40) M/uL Hgb 11.5 L (12.0-16.0) g/dl Hct 35.6 L (37.0-47.0) % MCV 90.1 (80.0-100.0) fL MCH 29.1 (25.0-34.0) pg MCHC 32.3 (32.0-36.0) g/dL RDW Std Deviation 47.6 H (36.4-46.3) fL RDW Coeff of Dorothy 14.5 (11.5-14.5) % Plt Count 321 (130-400) K/uL MPV 8.5 L (9.4-12.4) fL Immature Gran % (Auto) 0.9 % Neut % (Auto) 60.8 % Lymph % (Auto) 23.1 % Ramsey % (Auto) 7.2 % Eos % (Auto) 7.0 % Baso % (Auto) 1.0 % Neut # (Auto) 4.99 (1.40-6.50) K/uL Lymph # (Auto) 1.89 (1.20-3.40) K/uL Ramsey # (Auto) 0.59 (0.11-0.59) K/uL Eos # (Auto) 0.57 H (0.00-0.50) K/uL Baso # (Auto) 0.08 (0.00-0.20) K/uL Immature Gran # (Auto) 0.07 (0.01-0.20) K/uL PT 10.0 (9.0-12.0) Seconds INR 0.9 (0.9-1.1) Sodium 137 (136-145) mmol/L Potassium 4.1 (3.5-5.1) mmol/L Chloride 101 (98-107) mmol/L Carbon Dioxide 28 (21-32) mmol/L Anion Gap 8 (3-11) BUN 10 (6-23) mg/dl Creatinine 0.96 (0.6-1.2) mg/dl Est Cr Clr Drug Dosing Not Reportable eGFR 66.48 BUN/Creatinine Ratio 10.4 (10-20) Glucose 111 H (70-99(Fasting)) mg/dl Calcium 9.0 (8.6-10.3) mg/dl Total Bilirubin 0.2 (0.2-1.0) mg/dl AST 41 H (13-39) U/L ALT 37 (7-52) U/L Alkaline Phosphatase 66 (34-104) U/L Troponin I High Sens 5.1 (0-14) pg/ml Total Protein 7.1 (6.0-8.3) gm/dl Albumin 3.8 (3.4-5.0) gm/dl Globulin 3.3 (2.5-4.0) gm/dl Albumin/Globulin Ratio 1.2 (0.9-2) Urine Color Yellow Urine Appearance Clear (Clear) Urine pH 6.5 (4.5-7.5) Ur Specific [place] 1.029 (1.000-1.030) Urine Protein Negative (Negative) Urine Glucose (UA) Negative (Negative) Urine Ketones Negative (Negative) Urine Blood Negative (Negative) Urine Nitrite Negative (Negative) Urine Bilirubin Negative (Negative) Urine Urobilinogen Negative (Negative) Ur Leukocyte Esterase Trace H (Negative) Urine WBC (Auto) 0-5 (0-5) /hpf Urine RBC (Auto) 0-2 (0-2) /hpf U Hyaline Cast (Auto) 0-2 (0-2) /lpf U Epithel Cells (Auto) 0-2 (0-2) /hpf Urine Bacteria (Auto) None Seen (None Seen) Administered Medications Discontinued Medications Ioversol (Optiray 320 125ml) 117 ml IV ONCE ONE Stop: 07/29/24 19:12 Last Admin: 07/29/24 19:12 Dose: 117 ml Documented By: [facility] Imaging Data Radiologist's Impression: Head CT 07/29/24 17:37 Exam(s): CT HEAD Without Contrast EXAM: CT Head Without Intravenous Contrast CLINICAL HISTORY: Reason for exam: R arm weakness; difficulities ambulating. TECHNIQUE: Axial computed tomography images of the head/brain without intravenous contrast. CTDI is 29.56 mGy and DLP is 576.02 mGy-cm. Automated exposure control was utilized for the study. A dose lowering technique was utilized adhering to the principles of ALARA. COMPARISON: No relevant prior studies available. FINDINGS: Brain: Unremarkable. No hemorrhage. No significant white matter disease. No edema. Ventricles: Unremarkable. No ventriculomegaly. Bones/joints: Unremarkable. No acute fracture. Soft tissues: Unremarkable. Sinuses: Unremarkable as visualized. No acute sinusitis. Mastoid air cells: Unremarkable as visualized. No mastoid effusion. IMPRESSION: Normal head/brain CT. Electronically signed by: Giuseppe Tamez MD 07/29/24 19:44 PM Head CTA 07/29/24 17:37 Exam(s): CTA HEAD With Contrast IV Amt: 119 ml optiray 320 EXAM: CT Angiography Head With Intravenous Contrast CLINICAL HISTORY: Reason for exam: R arm weakness; difficulities ambulating. TECHNIQUE: Axial computed tomographic angiography images of the head with intravenous contrast. CTDI is 20.76 mGy and DLP is 604 mGy-cm. Automated exposure control was utilized for the study. A dose lowering technique was utilized adhering to the principles of ALARA. MIP reconstructed images were created and reviewed. CONTRAST: Patient received 119 ml optiray 320 of IV contrast COMPARISON: No relevant prior studies available. FINDINGS: Right internal carotid artery: No acute findings. Intracranial segment is patent with no significant stenosis. No aneurysm. Right anterior cerebral artery: Unremarkable. No occlusion or significant stenosis. No aneurysm. Right middle cerebral artery: Unremarkable. No occlusion or significant stenosis. No aneurysm. Right posterior cerebral artery: Unremarkable. No occlusion or significant stenosis. No aneurysm. Right vertebral artery: Unremarkable as visualized. Left internal carotid artery: No acute findings. Intracranial segment is patent with no significant stenosis. No aneurysm. Left anterior cerebral artery: Unremarkable. No occlusion or significant stenosis. No aneurysm. Left middle cerebral artery: Unremarkable. No occlusion or significant stenosis. No aneurysm. Left posterior cerebral artery: Unremarkable. No occlusion or significant stenosis. No aneurysm. Left vertebral artery: Unremarkable as visualized. Basilar artery: Unremarkable. No occlusion or significant stenosis. No aneurysm. IMPRESSION: Normal head CTA. Electronically signed by: Giuseppe Tamez MD 07/29/24 20:04 PM Neck CTA 07/29/24 17:37 Exam(s): CTA NECK With Contrast IV Amt: 119 ml optiray 320 EXAM: CT Angiography Neck With Intravenous Contrast CLINICAL HISTORY: Reason for exam: R arm weakness; difficulities ambulating. TECHNIQUE: Routine carotid CT angiography protocol was performed with intravenous contrast. NASCET criteria using the distal ICAs for comparison were used for evaluation of stenoses. CTDI is 14.47 mGy and DLP is 604 mGy-cm. Automated exposure control was utilized for the study. A dose lowering technique was utilized adhering to the principles of ALARA. MIP reconstructed images were created and reviewed. CONTRAST: Patient received 119 ml optiray 320 of IV contrast COMPARISON: None. FINDINGS: VASCULATURE: Right common carotid artery: Unremarkable. No occlusion or significant stenosis. No dissection. Right internal carotid artery: Unremarkable. Extracranial segment is patent with no occlusion or significant stenosis. No dissection. Right external carotid artery: Unremarkable. No occlusion. Right vertebral artery: Unremarkable. No occlusion or significant stenosis. No dissection. Left common carotid artery: Unremarkable. No occlusion or significant stenosis. No dissection. Left internal carotid artery: Unremarkable. Extracranial segment is patent with no occlusion or significant stenosis. No dissection. Left external carotid artery: Unremarkable. No occlusion. Left vertebral artery: Unremarkable. No occlusion or significant stenosis. No dissection. NECK: Bones/joints: Unremarkable. No acute fracture. Soft tissues: Unremarkable. Lung apices: Clear. CAROTID STENOSIS REFERENCE USING NASCET CRITERIA: % ICA stenosis = (1 - narrowest ICA diameter/diameter of distal cervical ICA) x 100. Mild - <50% stenosis. Moderate - 50-69% stenosis. Severe - 70-94% stenosis. Near occlusion - 95-99% stenosis. Occluded - 100% stenosis. IMPRESSION: Negative CTA neck. Is Electronically signed by: Giuseppe Tamez MD 07/29/24 20:22 PM Discharge Plan Visit Data Chief Complaint: Vertigo Stated Complaint: VERTIGO, PINCHED NERVE ENDINGS, LIGHTHEADED ED Provider: Marisabel Rivers Discharge Problem: Generalized weakness, Ambulatory dysfunction Forms Stand Alone Forms: [facility] [place] Silent Communication Prescriptions Prescriptions: No Action diazepam 5 mg tablet 5 mg PO .COMPLEX Qty: 3 0RF Rx Instructions: 5 mg PO; 1 tab PO qhs night prior, then 1.5 hours before procedure, then may repeat 0.5 hours prior to procedure; montelukast 10 mg tablet 10 mg PO QAM Qty: 90 1RF celecoxib [Celebrex] 200 mg capsule 200 mg PO DAILY Qty: 14 0RF amitriptyline 100 mg tablet 100 mg PO TID Qty: 90 1RF Rx Instructions: Take one tablet TID along with 25mg. tablet for a total of 125mg. TID trazodone 50 mg tablet 50 - 100 mg PO HS PRN (Reason: insomnia) Qty: 30 2RF Rx Instructions: 1 to 2 tabs orally at bedtime; PRN; atorvastatin [Lipitor] 20 mg tablet 20 mg PO QAM Qty: 90 1RF cyclobenzaprine 10 mg tablet 10 mg PO TID PRN (Reason: muscle spasm) Qty: 30 4RF hydrocodone-acetaminophen 5-325 mg tablet 1 tab PO Q6H PRN (Reason: pain) Qty: 10 0RF aspirin 81 mg Tablet,Delayed Release (Dr/Ec) 81 mg PO QAM cyanocobalamin (vitamin B-12) 500 mcg Tablet 500 mcg PO QAM pantoprazole 40 mg Tablet,Delayed Release (Dr/Ec) 40 mg PO QAM docusate sodium [Stool Softener] 100 mg Capsule 200 mg PO BID gabapentin 300 mg Capsule 600 mg PO TID duloxetine 60 mg Capsule,Delayed Release(Dr/Ec) 60 mg PO QAM cholecalciferol (vitamin D3) [Vitamin D3] 125 mcg (5,000 unit) Tablet 125 mcg PO QAM turmeric-herbal complex no.278 150 mg Capsule 1 cap PO QAM One-A-Day Women's Complete 18 mg iron- 400 mcg Tablet 1 tab PO QAM famotidine 20 mg tablet 20 mg PO QAM Referrals Referrals: Neris Floyd MD [Primary Care Provider] -
[2024-07-29 17:52] LABS: Basophils # (auto) 0.08 K/uL (0.00-0.20); Eosinophils # (auto) 0.57 K/uL (0.00-0.50); Hematocrit (blood only) 35.6 % (37.0-47.0); Hemoglobin 11.5 g/dl (12.0-16.0); Immature Granulocytes # (auto) 0.07 K/uL (0.01-0.20); Immature Granulocytes % (auto) 0.9 %; Lymphocytes # (auto) 1.89 K/uL (1.20-3.40); Lymphocytes % (auto) 23.1 %; Mean Corpuscular Hemoglobin 29.1 pg (25.0-34.0); Mean Corpuscular Hgb Conc 32.3 g/dL (32.0-36.0); Mean Corpuscular Volume 90.1 fL (80.0-100.0); Mean Platelet Volume 8.5 fL (9.4-12.4); Monocytes # (auto) 0.59 K/uL (0.11-0.59); Monocytes % (auto) 7.2 %; Neutrophils # (auto) 4.99 K/uL (1.40-6.50); Neutrophils % (auto) 60.8 %; Platelet Count 321 K/uL (130-400); RDW Coefficient of Variation 14.5 % (11.5-14.5); RDW Standard Deviation 47.6 fL (36.4-46.3); Red Blood Count 3.95 M/uL (4.20-5.40); White Blood Count 8.19 K/ul (4.8-10.8)
[2024-07-29 18:09] LABS: Alanine Aminotransferase 37 U/L (7-52); Albumin Globulin Ratio 1.2 (0.9-2); Albumin Level 3.8 gm/dl (3.4-5.0); Alkaline Phosphatase 66 U/L (34-104); Anion Gap 8 (3-11); Aspartate Aminotransferase 41 U/L (13-39); BUN Creatinine Ratio 10.4 (10-20); Bilirubin,Total 0.2 mg/dl (0.2-1.0); Blood Urea Nitrogen 10 mg/dl (6-23); Carbon Dioxide 28 mmol/L (21-32); Chloride 101 mmol/L (98-107); Globulin 3.3 gm/dl (2.5-4.0); Glucose 111 mg/dl (70-99(Fasting)); Potassium 4.1 mmol/L (3.5-5.1); Sodium 137 mmol/L (136-145); Total Protein 7.1 gm/dl (6.0-8.3)
[2024-07-29 18:15] LABS: Troponin I High Sensitivity 5.1 pg/ml (0-14)
[2024-07-29 18:26] LABS: INR 0.9 (0.9-1.1)
[2024-07-29] MEDS: OPTIRAY 320 125ml IV ONE (19:12)
--- NOTE | 2024-07-29 19:45 | CT Scan Report ---
Exam(s): CT HEAD Without Contrast EXAM: CT Head Without Intravenous Contrast CLINICAL HISTORY: Reason for exam: R arm weakness; difficulities ambulating. TECHNIQUE: Axial computed tomography images of the head/brain without intravenous contrast. CTDI is 29.56 mGy and DLP is 576.02 mGy-cm. Automated exposure control was utilized for the study. A dose lowering technique was utilized adhering to the principles of ALARA. COMPARISON: No relevant prior studies available. FINDINGS: Brain: Unremarkable. No hemorrhage. No significant white matter disease. No edema. Ventricles: Unremarkable. No ventriculomegaly. Bones/joints: Unremarkable. No acute fracture. Soft tissues: Unremarkable. Sinuses: Unremarkable as visualized. No acute sinusitis. Mastoid air cells: Unremarkable as visualized. No mastoid effusion. IMPRESSION: Normal head/brain CT. Electronically signed by: Giuseppe Tamez MD 07/29/24 19:44 PM
[2024-07-29 19:50] LABS: Appearance Urine Clear (Clear); Bacteria Urine Automated None Seen (None Seen); Bilirubin Urine Negative (Negative); Blood Urine Negative (Negative); Cast Urine Automated 0-2 /lpf (0-2); Color Urine Yellow; Epithelial Cell Urine Auto 0-2 /hpf (0-2); Glucose Urine UA Negative (Negative); Ketones Urine Negative (Negative); Leukocyte Esterase Urine Trace (Negative); Nitrite Urine Negative (Negative); Protein Urine Negative (Negative); RBC Urine Automated 0-2 /hpf (0-2); Specific Gravity Urine 1.029 (1.000-1.030); Urobilinogen Urine Negative (Negative); WBC Urine Automated 0-5 /hpf (0-5); pH Urine 6.5 (4.5-7.5)
--- NOTE | 2024-07-29 20:05 | CT Scan Report ---
Exam(s): CTA HEAD With Contrast IV Amt: 119 ml optiray 320 EXAM: CT Angiography Head With Intravenous Contrast CLINICAL HISTORY: Reason for exam: R arm weakness; difficulities ambulating. TECHNIQUE: Axial computed tomographic angiography images of the head with intravenous contrast. CTDI is 20.76 mGy and DLP is 604 mGy-cm. Automated exposure control was utilized for the study. A dose lowering technique was utilized adhering to the principles of ALARA. MIP reconstructed images were created and reviewed. CONTRAST: Patient received 119 ml optiray 320 of IV contrast COMPARISON: No relevant prior studies available. FINDINGS: Right internal carotid artery: No acute findings. Intracranial segment is patent with no significant stenosis. No aneurysm. Right anterior cerebral artery: Unremarkable. No occlusion or significant stenosis. No aneurysm. Right middle cerebral artery: Unremarkable. No occlusion or significant stenosis. No aneurysm. Right posterior cerebral artery: Unremarkable. No occlusion or significant stenosis. No aneurysm. Right vertebral artery: Unremarkable as visualized. Left internal carotid artery: No acute findings. Intracranial segment is patent with no significant stenosis. No aneurysm. Left anterior cerebral artery: Unremarkable. No occlusion or significant stenosis. No aneurysm. Left middle cerebral artery: Unremarkable. No occlusion or significant stenosis. No aneurysm. Left posterior cerebral artery: Unremarkable. No occlusion or significant stenosis. No aneurysm. Left vertebral artery: Unremarkable as visualized. Basilar artery: Unremarkable. No occlusion or significant stenosis. No aneurysm. IMPRESSION: Normal head CTA. Electronically signed by: Giuseppe Tamez MD 07/29/24 20:04 PM
--- NOTE | 2024-07-29 20:23 | CT Scan Report ---
Exam(s): CTA NECK With Contrast IV Amt: 119 ml optiray 320 EXAM: CT Angiography Neck With Intravenous Contrast CLINICAL HISTORY: Reason for exam: R arm weakness; difficulities ambulating. TECHNIQUE: Routine carotid CT angiography protocol was performed with intravenous contrast. NASCET criteria using the distal ICAs for comparison were used for evaluation of stenoses. CTDI is 14.47 mGy and DLP is 604 mGy-cm. Automated exposure control was utilized for the study. A dose lowering technique was utilized adhering to the principles of ALARA. MIP reconstructed images were created and reviewed. CONTRAST: Patient received 119 ml optiray 320 of IV contrast COMPARISON: None. FINDINGS: VASCULATURE: Right common carotid artery: Unremarkable. No occlusion or significant stenosis. No dissection. Right internal carotid artery: Unremarkable. Extracranial segment is patent with no occlusion or significant stenosis. No dissection. Right external carotid artery: Unremarkable. No occlusion. Right vertebral artery: Unremarkable. No occlusion or significant stenosis. No dissection. Left common carotid artery: Unremarkable. No occlusion or significant stenosis. No dissection. Left internal carotid artery: Unremarkable. Extracranial segment is patent with no occlusion or significant stenosis. No dissection. Left external carotid artery: Unremarkable. No occlusion. Left vertebral artery: Unremarkable. No occlusion or significant stenosis. No dissection. NECK: Bones/joints: Unremarkable. No acute fracture. Soft tissues: Unremarkable. Lung apices: Clear. CAROTID STENOSIS REFERENCE USING NASCET CRITERIA: % ICA stenosis = (1 - narrowest ICA diameter/diameter of distal cervical ICA) x 100. Mild - <50% stenosis. Moderate - 50-69% stenosis. Severe - 70-94% stenosis. Near occlusion - 95-99% stenosis. Occluded - 100% stenosis. IMPRESSION: Negative CTA neck. Is Electronically signed by: Giuseppe Tamez MD 07/29/24 20:22 PM
--- NOTE | 2024-07-29 21:52 | History & Physical Report ---
Date of Service July 29, 2024 Assessment & Plan (1) Ambulatory dysfunction: Plan: Worsening ambulatory dysfunction in the setting of cervical radiculopathy and polypharmacy Current pain management:Cymbalta, gabapentin, amitriptyline, Celecoxib, Flexeril - short course of Vicodin as needed was recently started for worsening pain Admitted to Med surge/ Telemetry CTA Head, neck - negative Will hold MRI of brain for now, low concern of stroke at this time. Normal neuro exam Hold Flexeril, Valium and Vicodin PT/OT in morning Case management consulted for possible placement Fall precautions (2) Generalized weakness: Plan: See above (3) Neuroforaminal stenosis of cervical spine: Plan: Moderate to severe multilevel neuroforaminal stenosis in C3-4, C4-5, C5-6, and C6-[address] Hernandez [facility] Management clinic follow outpatient (4) Hyperlipidemia: Plan: Continue atorvastatin 20 mg (5) GERD (gastroesophageal reflux disease): Plan: continue Pantoprazole 40 mg Plan FEN: Regular Code status: full code DVT ppx: Lovenox sq daily Held home meds: Flexeril, Vicodin and Valium PT/OT: Ordered for possible rehab placement vs PT outpatient Case management Dispo: med/surg with telemetry History of Present Illness Primary Care Provider: Neris Floyd MD 64 y/o female with PMH of cervical stenosis with radiculopathy, GERD, hyperlipidemia, IBS- D here due to ambulatory dysfunction. she refers increased weakness and numbness on right upper extremities since 2-3 weeks ago. She refers dropping stuff from her hands. She had been taking Cymbalta, amitriptyline and celecoxib for pain managed. She was recently started on Flexeril and short course for Vicodin as needed for breakthrough pain. She follows with pain management clinic as well, got an interlaminar epidural steroid injection on 06/26. She states as well that had bilateral carpal tunnel that had been bothersome more than usual. She follows with Dr. Hernandez for her severe stenosis. She refers her pain is controlled at this moment, and her ambulatory dysfunction it may be secondary to her pain medications that she took today (Vicodin). She denied any chest pain, palpitations, headaches, visual disturbances, abdominal pain, black stools or any other symptoms ED course: Head CT negative. CTA head and neck negative as well. Labs remarkable for hgb of 11. 7. Mild AST elevation (41). UA positive for trace H Allergies Allergy/AdvReac Type Severity Reaction Status Date / Time Penicillins Allergy Severe Anaphylaxis Verified 07/29/24 20:38 Egg Derived Allergy Unknown Hives, Verified 07/29/24 20:38 itching tramadol Allergy Unknown Pruritis Verified 07/29/24 20:38 Home Medications Medication Instructions Recorded Confirmed Type aspirin 81 mg tablet,delayed 81 mg PO QAM 03/21/23 07/29/24 History release cholecalciferol (vitamin D3) 125 125 mcg PO QAM 03/21/23 07/29/24 History mcg (5,000 unit) tablet (Vitamin D3) cyanocobalamin (vitamin B-12) 500 500 mcg PO QAM 03/21/23 07/29/24 History mcg tablet docusate sodium 100 mg capsule 200 mg PO BID 03/21/23 07/29/24 History (Stool Softener) duloxetine 60 mg capsule,delayed 60 mg PO QAM 03/21/23 07/29/24 History release gabapentin 300 mg capsule 600 mg PO TID 03/21/23 07/29/24 History brqupjrfbocn-[id number]-islr 1 tab PO QAM 03/21/23 07/29/24 History fumarate 18 mg-folic acid 400 mcg tablet (One-A-Day Women's Complete) pantoprazole 40 mg tablet,delayed 40 mg PO QAM 03/21/23 07/29/24 History release turmeric 150 mg-herbal complex 1 cap PO QAM 03/21/23 07/29/24 History no.278 capsule famotidine 20 mg tablet 20 mg PO QAM 02/27/24 07/29/24 History celecoxib 200 mg capsule (Celebrex) 200 mg PO DAILY #14 caps 05/13/24 07/29/24 Rx montelukast 10 mg tablet 10 mg PO QAM #90 tabs 05/13/24 07/29/24 Rx diazepam 5 mg tablet 5 mg PO .COMPLEX #3 tabs 06/26/24 07/29/24 Rx amitriptyline 100 mg tablet 100 mg PO TID #90 tabs 07/07/24 07/29/24 Rx trazodone 50 mg tablet 50 - 100 mg (1 - 2 x 50 mg) PO HS 07/16/24 07/29/24 Rx PRN insomnia #30 tabs atorvastatin 20 mg tablet (Lipitor) 20 mg PO QAM #90 tabs 07/23/24 07/29/24 Rx cyclobenzaprine 10 mg tablet 10 mg PO TID PRN muscle spasm #30 07/24/24 07/29/24 Rx tabs hydrocodone 5 mg-acetaminophen 325 1 tab PO Q6H PRN pain #10 tabs 07/24/24 07/29/24 Rx mg tablet Past Med/Surg History Problem List (Updated 07/29/24 @ 21:17 by Marisabel Rivers MD) Ambulatory dysfunction (Acute) Generalized weakness (Acute) Dizziness Neuroforaminal stenosis of cervical spine R C4-5 - severe Cervical post-laminectomy syndrome Cervical radiculopathy Upper abdominal pain Restless leg syndrome Neuropathy, lower extremity Numbness and tingling in both hands Acute sinusitis Abnormal CT lung screening Routine health maintenance Insomnia Depression with anxiety Tobacco use Obesity (BMI 30-39.9) Encounter for pre-operative examination Neuropathy Hyperlipidemia GERD (gastroesophageal reflux disease) Depression Anxiety Diverticular disease S/P tonsillectomy and adenoidectomy (Acute) Lumbar stenosis with neurogenic claudication Hx of cholecystectomy (Acute) Hx of appendectomy (Acute) H/O: hysterectomy (Acute) Diverticulitis (Acute) Cervical stenosis of spinal canal Bladder cancer (Acute) Medical History Hx-TIA (transient ischemic attack) 2013 or 2014, after bladder cancer procedure, "was a little lop sided after the surgery, said she may have had a mini-stroke," sent to therapy to help with the weakness on the right side RLS (restless legs syndrome) Neuropathy Insomnia Hyperlipidemia GERD (gastroesophageal reflux disease) Depression with anxiety Lung abnormality "spot" found on imaging in 2022, monitoring yearly w/drRory Cervical stenosis of spinal canal Degenerative disc disease Osteoarthritis Lumbar stenosis with neurogenic claudication Cervical stenosis of spinal canal Bladder cancer , chemo Surgical History Hx of cervical spine surgery 2022, C5-C7; ROM is fine History of tooth extraction History of carpal tunnel release right History of esophagogastroduodenoscopy (EGD) History of colonoscopy History of endoscopic sinus surgery History of lumbar surgery ~, "the last 3 discs in her back" S/P tonsillectomy and adenoidectomy History of appendectomy H/O: hysterectomy Family History Denies family history of Ovarian cancer Prostate cancer Diabetes Myocardial infarction Breast cancer Colorectal cancer Hypertension Social History Smoking Status: Current every day smoker Tobacco Type: Cigarettes Age Started Using Tobacco: 15; packs per day: 0.5; Cigarettes Per Day: 10; Second Hand Exposure: No; Do You Dip or Chew Tobacco: No; Hx Alcohol Use: No Hx Substance Use: Yes Last Used Substance Other:: occasional use of marijuana 6 months ago; others in her teens only Preferred Language: Nepali Communication Ability: Effective Fha Underwriter Required: No Beliefs That Will Affect Care: None Current Living Situation: Spouse and Family Feels Safe at Home: Yes Safety Concerns: Feels Safe At This Time Assistive Devices: Denture - Upper, Denture - Lower and Glasses Review of Systems Review of Systems: as per HPI Physical Exam Constitutional: WD/WN, vitals as above Respiratory: normal respiratory effort, lungs clear to auscultation Cardiovascular: RRR, no murmur, no edema Gastrointestinal (Abdomen): normal bowel sounds, soft, nontender, no hepatosplenomegaly Neurologic: PERRL, EOMI, accommodation nl, no face palsy, no dysarthria normal touch/pain/proprioception, CN's II-XI intact bilaterally, deep tendon reflexes 2+ bilaterally and awake Coordination: normal [id number] test Results & Data Results & Data Vital Signs (Past 12 Hours) Vital Signs Temp Pulse Pulse Resp BP BP Pulse Ox 07/29/24 18:41 81 14 130/89 94 07/29/24 18:40 82 14 95 07/29/24 17:50 84 07/29/24 16:55 36.8 C 90 14 122/54 L 94 O2 Del Method 07/29/24 18:41 Room Air 07/29/24 18:40 Room Air 07/29/24 17:50 07/29/24 16:55 Room Air Code Status & VTE Plan VTE Prophylaxis Plan VTE Prophylaxis will be ordered: Yes Supervising Physician Co-Signing Physician Notes Attending addendum: I have physically seen this patient, have supervised the medical residents activities, and agree with the H&P unless as otherwise noted. Assessment and Plan: Ambulatory dysfunction/right upper extremity weakness and numbness- History significant cervical lumbar spinal stenosis with radiculopathy She is on multiple medications which may cause lethargy, including amitriptyline 100 mg 3 times daily, cyclobenzaprine 10 mg 3 times daily as needed, duloxetine 60 mg every morning, trazodone 50 to 100 mg at bedtime, and gabapentin 600 mg 3 times daily She more recently was placed on [place] 5/325 every 6 hours as needed severe pain, having morning given 10 pills, and had the addition of cyclobenzaprine as noted above, both of which will be held CT scan of the head was negative CTA head and neck was negative Right upper extremity symptoms are likely secondary to cervical spine stenosis and radiculopathy as noted Patient does follow with orthopedic spine surgery Dr. Hernandez in the outpatient setting Consult PT/OT Depression with anxiety/peripheral neuropathy/radiculopathy/RLS- Continue medications as noted above, continue Celebrex 200 mg daily, vitamin B12 500 mcg daily GERD- Continue pantoprazole and famotidine Resident Activity Tracking Resident Involvement: Resident Care Provided Care Provided: Adult Hospital Medicine (4) Hyperlipidemia Hyperlipidemia type: mixed hyperlipidemia Qualified Code(s): E78.2 - Mixed hyperlipidemia (5) GERD (gastroesophageal reflux disease) Esophagitis presence: without esophagitis Qualified Code(s): K21.9 - Gastro- esophageal reflux disease without esophagitis
[2024-07-29] MEDS ORDERED: ONDANSETRON INJ 2 MG/ML 2 ML VIAL IV PRN (23:52)
[2024-07-29] MEDS ORDERED: traZODone HCL 50 MG TAB PO PRN (23:52)
[2024-07-29] MEDS ORDERED: POLYETHYLENE (MIRALAX) 17 GM PACK PO PRN (23:52)
[2024-07-29] MEDS ORDERED: ACETAMINOPHEN 325 MG TAB PO PRN (23:52)
[2024-07-30] MEDS: ENOXAPARIN INJ 40 MG/0.4 ML SYR SQ SCH (01:02)
--- NOTE | 2024-07-30 02:13 | Billing Data ---
Date of Service July 30, 2024 Coding Level of Care Code 66496 INT INP/OBS CARE
[2024-07-30 07:36] VITALS: RESP 18
--- NOTE | 2024-07-30 07:36 | Electrocardiogram Report ---
Test Reason : Blood Pressure : */* mmHG Vent. Rate : 88 BPM Atrial Rate : 88 BPM P-R Int : 142 ms QRS Dur : 82 ms QT Int : 362 ms P-R-T Axes : 25 41 58 degrees QTcB Int : 438 ms Normal sinus rhythm Low voltage QRS Borderline ECG When compared with ECG of 21-Mar-2023 11:51, No significant change was found Confirmed by Jones Killian ([id number]) on 07/30/2024 7:36:18 AM Referred By: REFERRED SELF Confirmed By: Jones Killian
[2024-07-30] MEDS ORDERED: [UNRECOGNIZED DRUG - REMARK] PO SCH (09:00)
[2024-07-30] MEDS: CeleBREX 200 MG CAP PO SCH (10:46)
[2024-07-30] MEDS: GABAPENTIN 300 MG CAP PO SCH (10:46)
[2024-07-30] MEDS: DOCUSATE SODIUM 100 MG CAP PO SCH (10:47)
[2024-07-30] MEDS: ASPIRIN 81 MG ECTAB PO SCH (10:47)
[2024-07-30] MEDS: MONTELUKAST SODIUM 10 MG TABLET PO SCH (10:48)
[2024-07-30] MEDS: ATORVASTATIN 20 MG TAB PO SCH (10:48)
[2024-07-30] MEDS: CHOLECALCIFEROL 125 MCG (5,000 UNITS) TAB PO SCH (10:48)
[2024-07-30] MEDS: PANTOprazole 40 MG TAB PO SCH (10:48)
[2024-07-30] MEDS: CYANOCOBALAMIN (B-12) 500 MCG TABLET PO SCH (10:48)
[2024-07-30] MEDS: DULoxetine HCL 60 MG CAP PO SCH (10:49)
[2024-07-30] MEDS: CEROVITE ADV FORMULA TAB PO SCH (10:49)
[2024-07-30] MEDS: FAMOTIDINE 20 MG TAB PO SCH (10:49)
[2024-07-30 11:28] VITALS: BP 112/68; PULSE 78; TEMP 98.4; O2SAT 93
[2024-07-30] MEDS: AMITRIPTYLINE HCL 100 MG TAB PO SCH (12:42)
--- NOTE | 2024-07-30 13:41 | Discharge Summary ---
Discharge Summary Date of Service July 30, 2024 Principal Dx & Hospital Course #1 = Principal Diagnosis (1) Ambulatory dysfunction: Worsening ambulatory dysfunction in the setting of cervical radiculopathy and polypharmacy Current pain management:Cymbalta, gabapentin, amitriptyline, Celecoxib, Flexeril - short course of Vicodin as needed was recently started for worsening pain CTA Head, neck - negative Patient states she took an extra dose of Vicodin when she started feeling weak and dropping staff and was not feeling herself. This morning patient is awake alert and oriented x 3. She is ambulating without any issues. She denies any numbness or tingling and is eating her meal without any issues holding knives and forks. Patient believes that this was all related to an extra dose of Vicodin and she has recognize that she needs to be careful with pain medications. Patient will follow-up with her PCP as outpatient (2) Generalized weakness: Resolved: Likely from extra dose of Vicodin (3) Neuroforaminal stenosis of cervical spine: Moderate to severe multilevel neuroforaminal stenosis in C3-4, C4-5, C5-6, and C6-[address] Hernandez [facility] clinic follow outpatient: Patient has steroid injection scheduled for September 16, 2024 She will follow-up with Dr. Hernandez and her pain management clinic (4) Hyperlipidemia: Continue atorvastatin 20 mg (5) GERD (gastroesophageal reflux disease): continue Pantoprazole 40 mg and Pepcid Avoid NSAIDs (6) Obesity (BMI 30-39.9): BMI is 44.5 Lifestyle counseling regarding diet, exercise and weight loss provided AST was mildly elevated: Will have patient follow-up with PCP for repeat labs and outpatient follow-up with PCP for further recommendations Plan Patient seen and examined today. Telemetry monitoring reviewed and no arrhythmia noted. Patient is ambulating without any issues. She is awake alert and oriented x 3 Have gone over the discharge care plan, medications and follow-up with the patient in great detail and answered all her questions This discharge to greater than 30 minutes to coordinate Admission HPI Per Admitting Provider 64 y/o female with PMH of cervical stenosis with radiculopathy, GERD, hyperlip idemia, IBS- D here due to ambulatory dysfunction. she refers increased weakness and numbness on right upper extremities since 2-3 weeks ago. She refers dropping stuff from her hands. She had been taking Cymbalta, amitriptyline and celecoxib for pain managed. She was recently started on Flexeril and short course for Vicodin as needed for breakthrough pain. She follows with pain management clinic as well, got an interlaminar epidural steroid injection on 06/26. She states as well that had bilateral carpal tunnel that had been bothersome more than usual. She follows with Dr. Hernandez for her severe stenosis. She refers her pain is controlled at this moment, and her ambulatory dysfunction it may be secondary to her pain medications that she took today (Vicodin). She denied any chest pain, palpitations, headaches, visual disturbances, abdominal pain, black stools or any other symptoms ED course: Head CT negative. CTA head and neck negative as well. Labs remarkable for hgb of 11. 7. Mild AST elevation (41). UA positive for trace H Discharge Exam General: No acute distress Psych: Awake and alert HEENT: Anicteric sclera, moist oral mucosa CVS: Regular rate and rhythm Lungs: Bilateral air entry, no wheezing noted Abdomen: Soft, nontender, no rebound, no guarding Ext: No lower extremity edema, no calf tenderness Neuro: No focal motor deficits noted, gait normal Discharge Plan Discharge Items Patient Disposition: Home - Self-Care Reason For Visit: AMBULATORY DYSFUNCTION Discharge Diagnosis: #Ambulatory dysfunction in setting of taking extra dose of Vicodin #Cervical stenosis with radiculopathy #Hyperlipidemia #GERD #Obesity #History of TIA #History of bladder cancer in remission Condition on Discharge: Good Activity: Resume your previous activity Driving/Machine Use: No driving while taking sedating medications including Vicodin Non-emergency contact: Primary Care Provider Call non-emergency contact if: you have any medication questions, your pain is not controlled, your pain is unusual for you and you have a fever Follow-up/Referrals: Elizabeth Green DO [Physician] - Neris Floyd MD [Primary Care Provider] - Emerson Hernandez DO [Surgeon] - Diet: Regular and Low Fat Addtl Attending Provider Instructions: DISCHARGE INSTRUCTION TO PATIENT/FAMILY: Follow-up with your primary care provider within 1 week regarding: Posthospital discharge, medication review, medication refills and follow-up on all your medical problems, LABS Please take all your discharge medications, discharge information and discharge instructions to all your doctors appointments. Avoid all NSAIDs including ibuprofen, Motrin, Advil, Aleve, naproxen, meloxicam, Toradol, diclofenac Follow-up with your orthopedic surgeon as outpatient and also with your pain management team for steroid injection Labs through PCP in 1 t 2 week: CBC, CMP, MG, VITAMIN D, IRON PANEL Pending Studies at Discharge: No Stand-Alone Forms: [facility], Smoking Cessation Medications and DC Order Prescriptions: Continued diazepam 5 mg tablet 5 mg PO .COMPLEX Qty: 3 0RF Rx Instructions: 5 mg PO; 1 tab PO qhs night prior, then 1.5 hours before procedure, then may repeat 0.5 hours prior to procedure; montelukast 10 mg tablet 10 mg PO QAM Qty: 90 1RF amitriptyline 100 mg tablet 100 mg PO TID Qty: 90 1RF Rx Instructions: Take one tablet TID along with 25mg. tablet for a total of 125mg. TID trazodone 50 mg tablet 50 - 100 mg PO HS PRN (Reason: insomnia) Qty: 30 2RF Rx Instructions: 1 to 2 tabs orally at bedtime; PRN; atorvastatin [Lipitor] 20 mg tablet 20 mg PO QAM Qty: 90 1RF cyclobenzaprine 10 mg tablet 10 mg PO TID PRN (Reason: muscle spasm) Qty: 30 4RF hydrocodone-acetaminophen 5-325 mg tablet 1 tab PO Q6H PRN (Reason: pain) Qty: 10 0RF aspirin 81 mg Tablet,Delayed Release (Dr/Ec) 81 mg PO QAM cyanocobalamin (vitamin B-12) 500 mcg Tablet 500 mcg PO QAM pantoprazole 40 mg Tablet,Delayed Release (Dr/Ec) 40 mg PO QAM docusate sodium [Stool Softener] 100 mg Capsule 200 mg PO BID gabapentin 300 mg Capsule 600 mg PO TID duloxetine 60 mg Capsule,Delayed Release(Dr/Ec) 60 mg PO QAM cholecalciferol (vitamin D3) [Vitamin D3] 125 mcg (5,000 unit) Tablet 125 mcg PO QAM turmeric-herbal complex no.278 150 mg Capsule 1 cap PO QAM One-A-Day Women's Complete 18 mg iron- 400 mcg Tablet 1 tab PO QAM famotidine 20 mg tablet 20 mg PO QAM Discontinued celecoxib [Celebrex] 200 mg capsule 200 mg PO DAILY Qty: 14 0RF Discharge Orders: Discharge Order (Routine); Ordered 07/30/24 Ordered By: Francesco Hernandez Admission Data Admit Date/Time: 07/29/24 21:46 Attending Provider: Francesco Hernandez Admit Provider: Mckinley Reina Primary Care Provider: Neris Floyd Other Providers: Ian Drum[facility] Hospital Stay Data Consultations 07/29/24 21:13 ED Decision to Admit Stat Procedures Performed 07/29/24 07/29/24 17:31 19:30 WBC 8.19 RBC 3.95 L Hgb 11.5 L Hct 35.6 L MCV 90.1 MCH 29.1 MCHC 32.3 RDW Std Deviation 47.6 H RDW Coeff of Dorothy 14.5 Plt Count 321 MPV 8.5 L Immature Gran % (Auto) 0.9 Neut % (Auto) 60.8 Lymph % (Auto) 23.1 [place] % (Auto) 7.2 Eos % (Auto) 7.0 Baso % (Auto) 1.0 Neut # (Auto) 4.99 Lymph # (Auto) 1.89 [place] # (Auto) 0.59 Eos # (Auto) 0.57 H Baso # (Auto) 0.08 Immature Gran # (Auto) 0.07 PT 10.0 INR 0.9 Sodium 137 Potassium 4.1 Chloride 101 Carbon Dioxide 28 Anion Gap 8 BUN 10 Creatinine 0.96 Est Cr Clr Drug Dosing Not Reportable eGFR 66.48 BUN/Creatinine Ratio 10.4 Glucose 111 H Calcium 9.0 Total Bilirubin 0.2 AST 41 H ALT 37 Alkaline Phosphatase 66 Troponin I High Sens 5.1 Total Protein 7.1 Albumin 3.8 Globulin 3.3 Albumin/Globulin Ratio 1.2 Urine Color Yellow Urine Appearance Clear Urine pH 6.5 Ur Specific [place] 1.029 Urine Protein Negative Urine Glucose (UA) Negative Urine Ketones Negative Urine Blood Negative Urine Nitrite Negative Urine Bilirubin Negative Urine Urobilinogen Negative Ur Leukocyte Esterase Trace H Urine WBC (Auto) 0-5 Urine RBC (Auto) 0-2 U Hyaline Cast (Auto) 0-2 U Epithel Cells (Auto) 0-2 Urine Bacteria (Auto) None Seen Diagnostic Imagining Performed 07/29/24 17:37 CT head/brain wo con Stat CTA head w con [CT angio head w con] Stat CTA neck with con [CT angio neck with con] Stat Head CT 07/29/24 17:37 Exam(s): CT HEAD Without Contrast EXAM: CT Head Without Intravenous Contrast CLINICAL HISTORY: Reason for exam: R arm weakness; difficulities ambulating. TECHNIQUE: Axial computed tomography images of the head/brain without intravenous contrast. CTDI is 29.56 mGy and DLP is 576.02 mGy-cm. Automated exposure control was utilized for the study. A dose lowering technique was utilized adhering to the principles of ALARA. COMPARISON: No relevant prior studies available. FINDINGS: Brain: Unremarkable. No hemorrhage. No significant white matter disease. No edema. Ventricles: Unremarkable. No ventriculomegaly. Bones/joints: Unremarkable. No acute fracture. Soft tissues: Unremarkable. Sinuses: Unremarkable as visualized. No acute sinusitis. Mastoid air cells: Unremarkable as visualized. No mastoid effusion. IMPRESSION: Normal head/brain CT. Electronically signed by: Giuseppe Tamez MD 07/29/24 19:44 PM Head CTA 07/29/24 17:37 Exam(s): CTA HEAD With Contrast IV Amt: 119 ml optiray 320 EXAM: CT Angiography Head With Intravenous Contrast CLINICAL HISTORY: Reason for exam: R arm weakness; difficulities ambulating. TECHNIQUE: Axial computed tomographic angiography images of the head with intravenous contrast. CTDI is 20.76 mGy and DLP is 604 mGy-cm. Automated exposure control was utilized for the study. A dose lowering technique was utilized adhering to the principles of ALARA. MIP reconstructed images were created and reviewed. CONTRAST: Patient received 119 ml optiray 320 of IV contrast COMPARISON: No relevant prior studies available. FINDINGS: Right internal carotid artery: No acute findings. Intracranial segment is patent with no significant stenosis. No aneurysm. Right anterior cerebral artery: Unremarkable. No occlusion or significant stenosis. No aneurysm. Right middle cerebral artery: Unremarkable. No occlusion or significant stenosis. No aneurysm. Right posterior cerebral artery: Unremarkable. No occlusion or significant stenosis. No aneurysm. Right vertebral artery: Unremarkable as visualized. Left internal carotid artery: No acute findings. Intracranial segment is patent with no significant stenosis. No aneurysm. Left anterior cerebral artery: Unremarkable. No occlusion or significant stenosis. No aneurysm. Left middle cerebral artery: Unremarkable. No occlusion or significant stenosis. No aneurysm. Left posterior cerebral artery: Unremarkable. No occlusion or significant stenosis. No aneurysm. Left vertebral artery: Unremarkable as visualized. Basilar artery: Unremarkable. No occlusion or significant stenosis. No aneurysm. IMPRESSION: Normal head CTA. Electronically signed by: Giuseppe Tamez MD 07/29/24 20:04 PM Neck CTA 07/29/24 17:37 Exam(s): CTA NECK With Contrast IV Amt: 119 ml optiray 320 EXAM: CT Angiography Neck With Intravenous Contrast CLINICAL HISTORY: Reason for exam: R arm weakness; difficulities ambulating. TECHNIQUE: Routine carotid CT angiography protocol was performed with intravenous contrast. NASCET criteria using the distal ICAs for comparison were used for evaluation of stenoses. CTDI is 14.47 mGy and DLP is 604 mGy-cm. Automated exposure control was utilized for the study. A dose lowering technique was utilized adhering to the principles of ALARA. MIP reconstructed images were created and reviewed. CONTRAST: Patient received 119 ml optiray 320 of IV contrast COMPARISON: None. FINDINGS: VASCULATURE: Right common carotid artery: Unremarkable. No occlusion or significant stenosis. No dissection. Right internal carotid artery: Unremarkable. Extracranial segment is patent with no occlusion or significant stenosis. No dissection. Right external carotid artery: Unremarkable. No occlusion. Right vertebral artery: Unremarkable. No occlusion or significant stenosis. No dissection. Left common carotid artery: Unremarkable. No occlusion or significant stenosis. No dissection. Left internal carotid artery: Unremarkable. Extracranial segment is patent with no occlusion or significant stenosis. No dissection. Left external carotid artery: Unremarkable. No occlusion. Left vertebral artery: Unremarkable. No occlusion or significant stenosis. No dissection. NECK: Bones/joints: Unremarkable. No acute fracture. Soft tissues: Unremarkable. Lung apices: Clear. CAROTID STENOSIS REFERENCE USING NASCET CRITERIA: % ICA stenosis = (1 - narrowest ICA diameter/diameter of distal cervical ICA) x 100. Mild - <50% stenosis. Moderate - 50-69% stenosis. Severe - 70-94% stenosis. Near occlusion - 95-99% stenosis. Occluded - 100% stenosis. IMPRESSION: Negative CTA neck. Is Electronically signed by: Giuseppe Tamez MD 07/29/24 20:22 PM Pending Results Patient Have Any Pending Studies at Discharge: No Discharge Instructions Given to Patient (Per Discharging Provider) DISCHARGE INSTRUCTION TO PATIENT/FAMILY: Follow-up with your primary care provider within 1 week regarding: Posthospital discharge, medication review, medication refills and follow-up on all your medical problems, LABS Please take all your discharge medications, discharge information and discharge instructions to all your doctors appointments. Avoid all NSAIDs including ibuprofen, Motrin, Advil, Aleve, naproxen, meloxicam, Toradol, diclofenac Follow-up with your orthopedic surgeon as outpatient and also with your pain management team for steroid injection Labs through PCP in 1 t 2 week: CBC, CMP, MG, VITAMIN D, IRON PANEL Total Time Total Time Spent Total Time Spent (In Minutes): 40 minutes Coding Level of Care Code 87070 INP/OBS DISCH >30 MIN Diagnoses Ambulatory dysfunction R26.2 Generalized weakness R53.1 Neuroforaminal stenosis of cervical spine M48.02 Mixed hyperlipidemia E78.2 Hyperlipidemia type: mixed hyperlipidemia Gastroesophageal reflux disease without esophagitis K21.9 Esophagitis presence: without esophagitis Obesity (BMI 30-39.9) E66.9
--- OUTSIDE RECORDS SUMMARY | 2024-07-30 17:32 | External Medical Summary | Summary of Care ---
Author Name Unknown Organization [facility] Address [address] [place] [address] Phone [phone] Care Team Providers Care Plumbing Foreman Name Role Phone Neris Parmar MD Primary Care Provider [phone] Reason for Visit * Reason Comments Follow Up Encounter Details Date Type Department Care Team (Latest Contact Info) Description 07/24/2024 11:30 AM EST Office Visit Gastroenterology, [address] [address] Ana Frost PA-C [address] [place] [id number] Gastroesophageal reflux disease, unspecified whether esophagitis present*; Esophageal dysphagia; Irritable bowel syndrome without diarrhea; History of colitis Allergies Active Allergy Reactions Criticality Noted Date Comments Egg-Derived Products Edema Other,Itching 2012 If she eats a lot of eggs Penicillins Anaphylaxis High 08/20/2013 Tramadol 03/21/2023 Other reaction(s): Pruritis documented as of this encounter (statuses as of 07/24/2024) Medications Cholecalciferol (VITAMIN D3) 1000 UNITS CAPS Take 1 Capsule by mouth in the morning. Active Aspirin 81 MG TBEC Take 1 Tablet by mouth in the morning. Active Multiple Vitamins-Minerals (WOMENS MULTI VITAMIN & MINERAL) TABS Take by mouth. A ctive Calcium Polycarbophil (FIBER) 625 MG TABS Take by mouth. Uses 2 tabs per day Active gabapentin (NEURONTIN) 300 MG Capsule Take 2 Capsules by mouth in the morning and 2 Capsules before bedtime. Takes a total of 1400 mg daily. 90 Cap 5 0 Active Turmeric 500 MG TABS Take 500 mg by mouth once for 1 dose. 0 Active Amitriptyline HCl 150 MG Oral Tablet (Elavil)Indicatio ns:Recurrent major depressive disorder, remission status unspecified (HCC),Neuropathy TAKE ONE TABLET BY MOUTH NIGHTLY AT BEDTIME 90 Tablet 1 3 Active Montelukast Sodium 10 MG Oral Tablet (Singulair)Indica tions:Seasonal allergic rhinitis due to pollen TAKE ONE TABLET BY MOUTH NIGHTLY AT BEDTIME 90 Tablet 1 3 Active Fluticasone Propionate 50 MCG/ACT Nasal SuspensionIndicat ions:Dysfunction of both eustachian tubes,Chronic middle ear effusion, bilateral Administer 2 Sprays into each nostril in the morning. 16 g 5 3 Active traZODone HCl 50 MG Oral Tablet (Desyrel)Indicati ons:Insomnia, unspecified type Take 1 Tablet by mouth at bedtime. 90 Tablet 3 3 Active Fluocinolone Acetonide 0.01 % Otic Oil (DermOtic)Indicat ions:Dermatitis of both ear canals Administer 4 drops to both ear canals twice a week 20 mL 2 3 Active Docusate Sodium 100 MG Oral Capsule Take 1 Capsule by mouth in the morning and 1 Capsule before bedtime. Active B-12 1000 MCG Oral Capsule Take 1 Capsule by mouth in the morning. Active DULoxetine HCl 60 MG Oral Capsule Delayed Release Particles (Cymbalta) Take 1 Capsule by mouth in the morning. Active Atorvastatin Calcium 20 MG Oral Tablet (Lipitor) Take 1 Tablet by mouth in the morning. 90 Tablet 1 3 Active Pantoprazole Sodium 40 MG Oral Tablet Delayed Release (Protonix)Indicat ions:Irritable bowel syndrome without diarrhea Take 1 Tablet by mouth in the morning. 90 Tablet 3 4 Active Famotidine 20 MG Oral Tablet (Pepcid) 1 Tablet every evening. 4 Active documented as of this encounter (statuses as of 07/24/2024) Active Problems Problem Noted Date Diagnosed Date Cervical stenosis of spinal canal 03/27/2023 Polyneuropathy, idiopathic progressive Anxiety 01/19/2022 History of bladder cancer 01/19/2022 BRIANNA (obstructive sleep apnea) 11/28/2021 Controlled substance agreement terminated 2021 Overview (11/17/2021): Failed UDS for temazepam and ativan Body mass index (BMI) of 40.0 to 44.9 in adult 0 01/18/2021 Overview: Per Obesity protocol Irritable bowel syndrome with diarrhea 6 Status post otolaryngological surgery, follow-up exam 04/06/2015 Dysphonia 12/02/2014 Polyp of vocal cord or larynx 12/02/2014 documented as of this encounter (statuses as of 07/24/2024) Resolved Problems Problem Noted Date Diagnosed Date Resolved Date Food insecurity 05/23/2021 06/23/2021 Overview: Per [facility] Protocol MEDICATION USE AGREEMENT 05/09/202106/2022 Bladder cancer 10/12/2014 01/19/2022 documented as of this encounter (statuses as of 07/24/2024) Social History Tobacco Use Types Packs/Day Years Used Date Smoking Tobacco: Every Day Cigarettes 0.5 45 Smokeless Tobacco: Never Comments:10 cig a day, now h owever many years smoking 1 PPD or more Alcohol Use Standard Drinks/Week Comments Not Currently 0 (1 standard drink = 0.6 oz pur e alcohol) occas PHQ-2 Answer Date Recorded PHQ Adult Total Score 0 12/15/2022 Hunger Vital Sign Answer Date Recorded Within the past 12 months, y ou worried that your food would run out before you got the money to buy more. Never true 12/16/19 23 Within the past 12 months, t he food you bought just didn't last and you didn't have money to get more. Never true 12/15/2022 Comments No Sex and Gender Information Value Date Recorded Sex Assigned at Not on file Legal Sex Female 4:56 AM EST Gender Identity Not on file Sexual Orientation Not on file documented as of this encounter Last Filed Vital Signs Vital Sign Reading Time Taken Comments Blood Pressure 148/58 07/24/2024 11:20 AM EST Pulse 92 07/24/2024 11:20 AM EST Temperature 36.4 C (97.5 F) 07/24/2024 1 1:20 AM EST Respiratory Rate 18 07/24/2024 11:2 0 AM EST Oxygen Saturation - - Inhaled Oxygen Concentration - - Weight 112.2 kg (247 lb 4.8 oz) 024 11:20 AM EST Height - - Body Mass Index 45.23 04/20/2024 12:50 PM EDT documented in this encounter Progress Notes * Ana Frost PA-C - 07/24/2024 11:23 AM EST [facility]CP: [facility] [facility] [address] [facility]: dysphagia HPI: 64 year old female with a hx of IBS-D and indeterminate colitis. Last seen here 01/24/23 by . Last colonoscopy 06/12/22 with scattered superficial mucosal ulcerations. Biopsies showed no significant histopathologic features. Presents in follow up today. States she is no longer needing any medications for her bowels. Reports BMs about 2-3 times daily, with generally formed stool. Has only occasional straining. Denies any rectal bleeding. No abdominal pain, n/v. Heartburn is controlled with pantoprazole and famotidine, each once daily. She does complain of daily dysphagia to most everything she eats. Has a prior hx of an esophageal web, last dilated in 2015. States her symptoms are similar to what she was feeling at that time. ROS: Constitutional: no weakness and no fatigue Eyes: no worsening of vision and no eye pain, redness, discharge ENT: no hearing loss, no congestion, no runny nose, no sore throat Resp: no sputum, no wheezing, no SOB, and + cough Cardiac: no chest pain and no dyspnea on exertion Female : no dysuria, no incontinence, and + difficult to urinate at times - must strain Neuro: no memory loss and no weakness Heme: no fever, no chills, no sweats, and no bleeding/bruising Endo: no excessive thirst and no excessive urination Skin: no rash, no itching, and no new/changing skin lesions ALLERGIES: Review of patient's allergies indicates: Allergen Reactions Penicillins Anaphylaxis Egg-Derived Products Edema Other and Itching If she eats a lot of eggs Tramadol Other reaction(s): Pruritis Current Outpatient Medications Medication Sig Dispense Refill Cholecalciferol (VITAMIN D3) 1000 UNITS CAPS Take 1 Capsule by mouth in the morning. Aspirin 81 MG TBEC Take 1 Tablet by mouth in the morning. Multiple Vitamins-Minerals (WOMENS MULTI VITAMIN & MINERAL) TABS Take by mouth. Calcium Polycarbophil (FIBER) 625 MG TABS Take by mouth. Uses 2 tabs per day gabapentin (NEURONTIN) 300 MG Capsule Take 2 Capsules by mouth in the morning and 2 Capsules beforebedtime. Takes a total of 1400 mg daily. 90 Cap 5 Turmeric 500 MG TABS Take 500 mg by mouth once for 1 dose. Amitriptyline HCl 150 MG Oral Tablet (Elavil) TAKE ONE TABLET BY MOUTH NIGHTLY AT BEDTIME 90 Tablet1 Montelukast Sodium 10 MG Oral Tablet (Singulair) TAKE ONE TABLET BY MOUTH NIGHTLY AT BEDTIME 90 Tablet 1 Fluticasone Propionate 50 MCG/ACT Nasal Suspension Administer 2 Sprays into each nostril in the morning. 16 g 5 traZODone HCl 50 MG Oral Tablet (Desyrel) Take 1 Tablet by mouth at bedtime. 90 Tablet 3 Docusate Sodium 100 MG Oral Capsule Take 1 Capsule by mouth in the morning and 1 Capsule before bedtime. B-12 1000 MCG Oral Capsule Take 1 Capsule by mouth in the morning. DULoxetine HCl 60 MG Oral Capsule Delayed Release Particles (Cymbalta) Take 1 Capsule by mouth in the morning. Atorvastatin Calcium 20 MG Oral Tablet (Lipitor) Take 1 Tablet by mouth in the morning. 90 Tablet 1 Pantoprazole Sodium 40 MG Oral Tablet Delayed Release (Protonix) Take 1 Tablet by mouth in the morning. 90 Tablet 3 Famotidine 20 MG Oral Tablet (Pepcid) 1 Tablet every evening. Fluocinolone Acetonide 0.01 % Otic Oil (DermOtic) Administer 4 drops to both ear canals twice a week 20 mL 2 No current facility-administered medications for this visit. Past Medical History: Diagnosis Date Crohn's disease (HCC) Diverticulitis Ulcerative colitis (HCC) Past Surgical History: Procedure Laterality Date COLONOSCOPY, DIAGNOSTIC (RECTUM) 09/01/2013 normal, repeat 10 yrs/COLONOSCOPY FLEXIBLE PROXIMAL DIAGNOSTIC performed by Rebecca Zendejas MD at [facility] COLONOSCOPY, DIAGNOSTIC (RECTUM) 11/09/2014 inflammation but no evidence of cancer or infection/COLONOSCOPY FLEXIBLE PROXIMAL DIAGNOSTIC performed by Chris Ríos MD at [facility] COLONOSCOPY, DIAGNOSTIC (RECTUM) N/A 01/28/2016 normal, 10 yr recall, COLONOSCOPY FLEXIBLE PROXIMAL DIAGNOSTIC performed by Artie Greco MD at [facility] COLONOSCOPY, DIAGNOSTIC (RECTUM) N/A 06/12/2022 scattered superficial mucosal ulceration throughout colon/biopsies normal/recall 5 years/COLONOSCOPY FLEXIBLE PROXIMAL DIAGNOSTIC performed by Therese Guerrero MD at [facility] CYSTOSCOPY/TREAT SML BLADDER TUMOR N/A 2017 CYSTOURETHROSCOPY WITH FULGURATION SMALL BLADDER TUMOR performed by Thai Erickson Jr., MD at [facility] EGD, FLEXIBLE, DIAGNOSTIC 12/04/2014 A nodule was found on the right vocal cord (previously known). no significant pathology on bx/ESOPHAGOGASTRODUODENOSCOPY (EGD), FLEXIBLE, TRANSORAL, DIAGNOSTIC performed by Chris Ríos MD at [facility] EGD, FLEXIBLE, DIAGNOSTIC N/A 12/22/2015 mild inflammation at the end of esophagus consistent with acid reflux/ESOPHAGOGASTRODUODENOSCOPY (EGD), FLEXIBLE, TRANSORAL, DIAGNOSTIC performed by Artie Greco MD at [facility] INFORMATION 06/2015 removal bladder tumor KNEE ARTHROSCOPY/SURGERY Left 2016 LARYNGOSCOPY, VOCAL CORD EXCISION/STRIPPING N/A 04/02/2015 LARYNGOSCOPY DIRECT STRIPPING VOCAL CORD WITH MICROSCOPE performed by Juan Jose De Guzman MD at [facility] REMOVAL OF OVARY(S) 2014 REMOVAL OF TONSILS, AGE 12+ TOTAL HYSTERECTOMY 06/2015 Family History Problem Relation Name Age of Onset Other (Other) Mother Diverticulitis SOCIAL HISTORY: Social History Tobacco Use Smoking status: Every Day Current packs/day: 0.50 Average packs/day: 0.5 packs/day for 45.0 years (22.5 ttl pk-yrs) Types: Cigarettes Smokeless tobacco: Never Tobacco comments: 10 cig a day, now however many years smoking 1 PPD or more Substance Use Topics Alcohol use: Not Currently Comment: occas Vaping/E-Cigarette Use Vaping/E-Cigarette Use Never User Vaping/E-Cigarette Substances Vaping/E-Cigarette Devices PHYSICAL EXAM Pulse 92 | Temp 36.4 C (97.5 F) | Resp 18 | Wt 112.2 kg (247 lb 4.8 oz) | BMI 45.23 kg/m | BSA 2.22 m GENERAL: alert and no distress HEAD: Normocephalic, No masses, lesions or abnormalities EYES: conjunctiva are pink and non-injected, sclera clear NECK: supple LUNGS: few wheezes HEART: regular rate & rhythm ABDOMEN: abdomen soft, non-tender, obese, normal bowel sounds, and no masses or organomegaly EXTREMITIES: no edema NEURO: alert & oriented x 3 with fluent speech, no focal motor/sensory deficits ASSESSMENT: ICD-10-CM 1. Gastroesophageal reflux disease, unspecified whether esophagitis present K21.9 2. Esophageal dysphagia R13.19 3. Irritable bowel syndrome without diarrhea K58.9 4. History of colitis Z87.19 PLAN: Will arrange an EGD with esophageal dilation. Continue pantoprazole and famotidine as current. Monitor symptoms otherwise and follow up here in six months, sooner as needed. Ana Frost PA-C documented in this encounter Nursing Notes * Princess Hood RN - 07/24/2024 11:22 AM EST Chief Complaint Patient presents with Follow Up Had colonoscopy in 2021. Moving bowels 2-3 times a day. Stools are formed. No blood in stools. No abdominal pain or n/v. Heartburn controlled. documented in this encounter Plan of Treatment Upcoming Encounters Date Type Department Care Team (Latest Contact Info) Description 01/09/2025 8:15 AM EDT Hospital Encounter [facility]O [facility], Endoscopy [address] [place] [address] Rebecca Zendejas MD [address] [facility] [place] [address] 01/09/2025 8:15 AM EDT - 01/09/2025 8:45 AM EDT Surgery [facility]O [facility], Endoscopy Suite [facility] [address] [place] [address] Rebecca Zendejas MD [address] [place] [address] ESOPHAGOGASTRODUODENOSCOPY (EGD), FLEXIBLE, TRANSORAL, DIAGNOSTIC 01/21/2025 9:30 AM EDT Office Visit Gastroenterology , [facility] [address] [place] [address] Ana Frost PA-C [address] [place], [place] [id number] 06/22/2025 10:00 AM EDT Office Visit Urology [facility] [place] [address] [place] [address] [place], [place] [id number] Thai Erickson Jr., MD [address] [place] [address] Scheduled Orders Name Type Priority Associated Diagnoses Orde r Schedule EGD, FLEXIBLE, DIAGNOSTIC Procedures Routine Gastroesophageal reflux disease, unspecified whether esophagitis present Esophageal dysphagia Ordered: 07/24/2024 Scheduled Procedures Name Priority Associated Diagnoses Date/Ti me ESOPHAGOGASTRODUODENOSCOPY ( EGD), FLEXIBLE, TRANSORAL, DIAGNOSTIC Gastroesophageal reflux disease, unspecified whether esophagitis present Esophageal dysphagia 01/09/2025 8:15 AM EDT COLONOSCOPY FLEXIBLE PROXIMA L DIAGNOSTIC Recall Ulceration of colon Health Maintenance Due Date Last Done Comments Pneumococcal Vaccine: Pediatrics (0 to 5 Years) and At-Risk Patients (6 to 64 Years) (1 of 2 - PCV) 1967 HIV Screening 1976 Hepatitis C Screening 1979 DTap/Tdap Vaccines (1 - Tdap) 1980 Cologuard 2006 Fecal Occult Blood Test 2006 Sigmoidoscopy 2006 Zoster Vaccines (1 of 2) 2011 Mammogram 09/21/2023 09/21/2022, 05/11, 06/04/2019, Additional history exists Depression Screening 12/16/2023 12/15/2022 COVID-19 Vaccine ( season) 2024 Influenza Vaccine (FLU shot) (#1) 2024 Diabetes Screening 03/21/2026 03/21/2023, 0 12/07/2022, 01/19/2022, Additional history exists Colonoscopy 06/12/2027 06/12/2022, 1011/2021, 01/28/2016, Additional history exists Colorectal Cancer Screening 06/12/2027 Lipid Panel 12/08/2027 12/07/2022, 01/08, 09/15/2021, Additional history exists Lung Cancer Screening Completed 11/16/2021 , 11/09/2020, 05/18/2016 RETIRED - COLONOSCOPY-EVERY 5 YRS AGES 18-100 Discontinued 06/12/2022, 06/12/2022, 01/28/2016, Additional history exists HPV (Gardasil) Vaccine Aged Out No lo nger eligible based on patient's age to complete this topic Hepatitis B Vaccine Aged Out No longe r eligible based on patient's age to complete this topic MENINGOCOCCAL (MENACTRA/MENVEO) Aged Out No longer eligible based on patient's age to complete this topic documented as of this encounter Medical Devices Not on filedocumented as of this encounter Visit Diagnoses Diagnosis Gastroesophageal reflux disease, unspecified whether esophagitis present- Primary Esophageal dysphagia Dysphagia, pharyngoesophageal phase Irritable bowel syndrome without diarrhea Irritable bowel syndrome History of colitis Gastroesophageal reflux disease, unspecified whether esophagitis present Esophageal dysphagia Dysphagia, pharyngoesophageal phase documented in this encounter Care Teams Plumbing Foreman Relationship Specialty [place] [address] [place] [address] [place] [address] PCP - General Family Medicine 04/20/24 documented as of this encounter"
== END 2024-07-30 15:12 | disposition home or self-care (01) ==
LOC: EDINP 16:51 → ED 16:51 → SUATTDRO 21:46 → 2S 07-30 05:20

== ENCOUNTER 2025-01-05 06:46 | Inpatient (IN) ==
--- NOTE | 2024-11-04 15:16 | PAT Medication Instructions ---
Medication Instructions Date of Service November 04, 2024 Home Medications Medication Instructions Recorded montelukast 10 mg tablet 10 mg PO QAM #90 tabs 05/13/24 atorvastatin 20 mg tablet (Lipitor) 20 mg PO QAM #90 tabs 07/23/24 amitriptyline 100 mg tablet 100 mg PO TID #90 tabs 09/05/24 famotidine 20 mg tablet 20 mg PO QAM #90 tabs 09/22/24 cyclobenzaprine 10 mg tablet 10 mg PO TID PRN muscle spasm #30 10/09/24 tabs trazodone 50 mg tablet 50 - 100 mg (1 - 2 x 50 mg) PO HS 10/31/24 PRN insomnia #30 tabs Medication List: duloxetine 60 mg capsule,delayed release 60 mg PO QAM pantoprazole 40 mg tablet,delayed release 40 mg PO QAM montelukast 10 mg tablet 10 mg PO QAM atorvastatin 20 mg tablet (Lipitor) 20 mg PO QAM cholecalciferol (vitamin D3) 50 mcg (2,000 unit) capsule (Vitamin D3) 50 mcg PO DAILY docusate sodium 100 mg capsule (Stool Softener) 200 mg PO BID PRN Constipation turmeric root extract 1,053 mg tablet 1,053 mg PO DAILY vitamin B comp and C no.3 15 mg-10 mg-50 mg-5 mg-300 mg capsule (B Complex Plus Vitamin C) 1 cap PO DAILY amitriptyline 100 mg tablet 100 mg PO TID famotidine 20 mg tablet 20 mg PO QAM cyclobenzaprine 10 mg tablet 10 mg PO TID PRN muscle spasm trazodone 50 mg tablet 50 - 100 mg (1 - 2 x 50 mg) PO HS PRN insomnia pregabalin 75 mg capsule (Lyrica) 75 mg PO QAM MEDICATION INSTRUCTIONS: STOP taking 2 weeks before surgery turmeric root extract 1,053 mg tablet 1,053 mg PO DAILY DO NOT take the morning of surgery vitamin B comp and C no.3 15 mg-10 mg-50 mg-5 mg-300 mg capsule (B Complex Plus Vitamin C) 1 cap PO DAILY cholecalciferol (vitamin D3) 50 mcg (2,000 unit) capsule (Vitamin D3) 50 mcg PO DAILY docusate sodium 100 mg capsule (Stool Softener) 200 mg PO BID PRN Constipation Take morning of surgery With a small sip of water, OTHERWISE NOTHING TO EAT OR DRINK AFTER MIDNIGHT: duloxetine 60 mg capsule,delayed release 60 mg PO QAM pantoprazole 40 mg tablet,delayed release 40 mg PO QAM montelukast 10 mg tablet 10 mg PO QAM atorvastatin 20 mg tablet (Lipitor) 20 mg PO QAM cyclobenzaprine 10 mg tablet 10 mg PO TID PRN muscle spasm amitriptyline 100 mg tablet 100 mg PO TID pregabalin 75 mg capsule (Lyrica) 75 mg PO QAM famotidine 20 mg tablet 20 mg PO QAM Take evening before surgery docusate sodium 100 mg capsule (Stool Softener) 200 mg PO BID PRN Constipation cyclobenzaprine 10 mg tablet 10 mg PO TID PRN muscle spasm amitriptyline 100 mg tablet 100 mg PO TID trazodone 50 mg tablet 50 - 100 mg (1 - 2 x 50 mg) PO HS PRN insomnia Other Notes If you have any questions please call us at [phone] or [phone] or [phone] or [phone]
--- NOTE | 2024-11-12 08:47 | Anesthesiology Consultation ---
Date of Service November 12, 2024 Assessment & Plan (1) Encounter for pre-operative examination: - Infectious disease screening: Per assessment on 11/12/24- No known recent infectious disease contacts or current infectious disease symptoms. - Patient acceptable risk for surgery pending surgeon-ordered PCP preop evaluation ([facility], appt 11/19). Chart Review Chart Review: Patient seen in Pre Admission Testing Teaching & Discussion Pre-Anesthesia Teaching/Discussion Notes: Instructed NPO after midnight before surgery,except medications with 15 cc of water. Medication instructions provided according to the PAT guidelines. History Surgery Operation Date: 11/25/24 12:55 Proposed Procedures p C4-C5 Anterior Cervical Discectomy Fusion, Spinal Cord Monitoring - Emerson Hernandez DO Height/Weight Height: 5 ft 4 in Weight: 105.6 kg Allergies Allergy/AdvReac Type Severity Reaction Status Date / Time Penicillins Allergy Severe Anaphylaxis Verified 11/11/24 15:19 Egg Derived Allergy Mild Hives, Verified 11/11/24 15:19 itching tramadol Allergy Mild Pruritis Verified 11/11/24 15:19 Medications Home Medications Medication Instructions Recorded Confirmed Last Taken duloxetine 60 mg capsule,delayed 60 mg PO QAM 03/21/23 11/11/24 07/29/24 06:00 release pantoprazole 40 mg tablet,delayed 40 mg PO QAM 03/21/23 11/11/24 07/29/24 06:00 release montelukast 10 mg tablet 10 mg PO QAM #90 tabs 05/13/24 11/11/24 07/29/24 06:00 atorvastatin 20 mg tablet (Lipitor) 20 mg PO QAM #90 tabs 07/23/24 11/11/24 07/29/24 06:00 cholecalciferol (vitamin D3) 50 50 mcg PO DAILY 08/20/24 11/11/24 Unknown mcg (2,000 unit) capsule (Vitamin D3) docusate sodium 100 mg capsule 200 mg PO BID PRN Constipation 08/20/24 11/11/24 Unknown (Stool Softener) turmeric root extract 1,053 mg 1,053 mg PO DAILY 08/20/24 11/11/24 Unknown tablet vitamin B comp and C no.3 15 mg-10 1 cap PO DAILY 08/20/24 11/11/24 Unknown mg-50 mg-5 mg-300 mg capsule (B Complex Plus Vitamin C) amitriptyline 100 mg tablet 100 mg PO TID #90 tabs 09/05/24 11/11/24 Unknown famotidine 20 mg tablet 20 mg PO QAM #90 tabs 09/22/24 11/11/24 Unknown cyclobenzaprine 10 mg tablet 10 mg PO TID PRN muscle spasm #30 10/09/24 11/11/24 Unknown tabs trazodone 50 mg tablet 50 - 100 mg (1 - 2 x 50 mg) PO HS 10/31/24 11/11/24 Unknown PRN insomnia #30 tabs pregabalin 75 mg capsule (Lyrica) 75 mg PO QAM 11/04/24 11/11/24 Unknown Past Medical History Medical History Cervical stenosis of spinal canal Degenerative disc disease Depression with anxiety Diverticular disease GERD (gastroesophageal reflux disease) History of diverticulitis Per remote records Hx of bladder cancer , chemo Hx of colonic polyps Hx-TIA (transient ischemic attack) Possible TIA/CVA 2013- after bladder cancer procedure Hyperlipidemia Insomnia Lumbar stenosis with neurogenic claudication Lung abnormality Noted on 2022 imaging per patient Unremarkable 11/08/23 CT Lung, 10/2024 CXR Morbid obesity Neuroforaminal stenosis of cervical spine Neuropathy Osteoarthritis Poor historian RLS (restless legs syndrome) Sleep apnea Patient was to receive device but never did (would now need to retest in order to place order again for device) Exercise / Class Metabolic Activity III < 4 Walking/Shop/Light housework Past Family History Family History Denies family history of Ovarian cancer Prostate cancer Diabetes Myocardial infarction Breast cancer Colorectal cancer Hypertension Past Surgical History Surgical History H/O: hysterectomy History of appendectomy History of carpal tunnel release right History of endoscopic sinus surgery History of esophagogastroduodenoscopy (EGD) History of lumbar surgery ~2020/2021, "the last 3 discs in her back" History of tooth extraction Hx of cervical spine surgery 2022, C5-C7 2020, C6-C7 Hx of cholecystectomy Per records Hx of colonoscopy with polypectomy Hx of cystoscopy found bladder ca S/P tonsillectomy and adenoidectomy Past Anesthesia History No Hx of Anesthesia Complications and No Family Hx of Anesthesia Complications History of PONV No Hx of PONV and No Hx of Motion Sickness Social History Smoking Status: Current every day smoker tobacco type: cigarettes Smoking cigarettes per day: 1 PPD Do You Dip or Chew Tobacco: No Hx Alcohol Use: No Hx Substance Use: No substance use type: marijuana (Hx Marijuana) Review of Systems Patient denies chest pain, shortness of breath, fever, chills, cough, wheezing, palpitations. Physical Exam Vital Signs BP 106/63 P 77 TEMP 99.2 SP02 95%RA RESP 18 Physical Mildly decreased cervical extension range of motion. Full TMJ range of motion. TMD > 3.5 finger breaths Mallampati Score II Dentition: upper/lower full dentures Lungs: clear throughout to auscultation Cardiac: regular rate and rhythm, no murmurs noted Spine: normal Carotid arteries: negative bruit Extremities: no LE edema Lab Results Anesthesia Preop Results Results Anesthesia Widget: WBC 9.88 K/ul (4.8-10.8) 10/15/24 Hgb 13.4 g/dl (12.0-16.0) 10/15/24 Hct 40.8 % (37.0-47.0) 10/15/24 Plt 336 K/uL (130-400) 10/15/24 Na 138 mmol/L (136-145) 10/15/24 K 4.1 mmol/L (3.5-5.1) 10/15/24 Cl 100 mmol/L (98-107) 10/15/24 CO2 32 mmol/L (21-32) 10/15/24 BUN 9 mg/dl (6-23) 10/15/24 Creat 0.90 mg/dl (0.6-1.2) 10/15/24 Glucose Level 83 mg/dl (70-99(Fasting)) 10/15/24 PT 10.7 Seconds (9.0-12.0) 11/12/24 PTT 27 Seconds (21-31) 11/12/24 INR 1.0 (0.9-1.1) 11/12/24 Urine Color Yellow 10/15/24 Urine Appearance Clear (Clear) 10/15/24 Urine pH 5.5 (4.5-7.5) 10/15/24 Urine Specific [place] 1.013 (1.000-1.030) 10/15/24 Urine Protein Negative (Negative) 10/15/24 Urine Glucose (UA) Negative (Negative) 10/15/24 Urine Ketones Negative (Negative) 10/15/24 Urine Blood Negative (Negative) 10/15/24 Urine Nitrite Negative (Negative) 10/15/24 Urine Bilirubin Negative (Negative) 10/15/24 Urine Urobilinogen Negative (Negative) 10/15/24 Urine Leukocyte Esterase 2+ (Negative) H 10/15/24 Urine WBC (Auto) 11-20 /hpf (0-5) H 10/15/24 Urine RBC (Auto) 0-2 /hpf (0-2) 10/15/24 Urine Hyaline Casts (Auto) 0-2 /lpf (0-2) 10/15/24 Urine Epithelial Cells (Auto) 3-5 /hpf (0-2) H 10/15/24 Urine Bacteria (Auto) None Seen (None Seen) 10/15/24 Blood Type A Positive 11/12/24 Antibody Screen NEGATIVE 11/12/24 Testing Laboratory Results Urine culture (10/15/24) Probable skin francisca Electrocardiogram Date: 10/15/24 NSR at 76bpm. Low voltage QRS. No significant change compared to 07/29/2024 per sr. media manager comparison. Chest X-Ray Date: 10/15/24 Findings: + NAD
--- OUTSIDE RECORDS SUMMARY | 2025-01-05 06:51 | External Medical Summary | Summary of Care ---
Author Name Unknown Organization [facility] Address [address] [place] [address] Phone [phone] Care Team Providers Care Tip Finisher Name Role Phone Neris Floyd MD Primary Care Provider Reason for Visit * Reason Onset Date Comments Appointment 12/25/2024 cystoscopy Encounter Details Date Type Department Care Team (Late st Contact Info) Description 12/25/2024 Telephone Urology Cecilia Edwards [address] [place] [address] Thai Erickson Jr., MD [address] [phone] Appointment (cystoscopy) Allergies Active Allergy Reactions Criticality Noted Date Comments Egg-Derived Products Edema Other,Itching 2012 If she eats a lot of eggs Penicillins Anaphylaxis High 08/20/2013 Tramadol 03/21/2023 Other reaction(s): Pruritis documented as of this encounter (statuses as of 12/25/2024) Medications Cholecalciferol (VITAMIN D3) 1000 UNITS CAPS [...] as of this encounter (statuses as of 12/25/2024) Active Problems Problem Noted Date Diagnosed Date Cervical stenosis of spinal canal 03/27/2023 Polyneuropathy, idiopathic progressive 2 Anxiety 01/19/2022 History of bladder cancer 01/19/2022 [...] as of this encounter (statuses as of 12/25/2024) Resolved Problems Problem Noted Date Diagnosed Date Resolved Date Food insecurity 05/23/2021 06/23/2021 Overview: Per [facility] Protocol MEDICATION USE AGREEMENT 05/09/202106/2022 Bladder cancer 10/12/2014 01/19/2022 documented as of this encounter (statuses as of 12/25/2024) Social History Tobacco Use Types Packs/Day Years [...] on file documented as of this encounter Miscellaneous Notes * Telephone Encounter - Nany Miller, MED ASSIST - 12/25/2024 2:04 PM EDT Patient is rescheduled and patient aware * Telephone Encounter - Cecilia Hernadez OSA - 12/25/2024 1:55 PM EDT Patient calling to reschedule her cystoscopy. documented in this encounter Plan of Treatment Upcoming Encounters Date Type Department Care Team (Latest Contact Info) Description 01/09/2025 8:15 AM EDT Hospital Encounter [facility] Endoscopy [address] [place] [phone] Rebecca Zendejas MD [address] [place] [address] 01/09/2025 8:15 AM EDT - 01/09/2025 8:45 AM EDT Surgery [facility] Endoscopy [address] [place] [address] Rebecca Zendejas MD [address] [place] [address] ESOPHAGOGASTRODUODENOSCOPY (EGD), FLEXIBLE, TRANSORAL, DIAGNOSTIC 01/21/2025 9:30 AM EDT Office [address] G[address]enterology , [address] [place] [address] Ana Frost PA-C [address] [place], [place] [address] [address] 06/30/2025 8:30 AM EDT Procedure Only Urology Cecilia Edwards [address] [id number] Thai Erickson Jr., MD [address] [phone] Scheduled Procedures Name Priority Associated Diagnoses Date/Ti me ESOPHAGOGASTRODUODENOSCOPY ( EGD), FLEXIBLE, TRANSORAL, DIAGNOSTIC Gastroesophageal reflux disease, unspecified whether esophagitis present Esophageal dysphagia 01/09/2025 8:15 AM EDT COLONOSCOPY FLEXIBLE PROXIMA L DIAGNOSTIC Recall Ulceration of colon Health Maintenance Due Date Last Done Comments Depression Screening 1973 HIV Screening 1976 Hepatitis C Screening 1979 DTap/Tdap Vaccines (1 - Tdap) 1980 Pneumococcal Vaccine: 50+ Years (1 of 2 - PCV) 1980 Cologuard 2006 Fecal Occult Blood Test 2006 Sigmoidoscopy 2006 Zoster Vaccines (1 of 2) 2011 Lung Cancer Screening 11/16/2022 11/16/2021 , 11/09/2020, 05/18/2016 Mammogram 09/21/2023 09/21/2022, 05/11, 06/04/2019, Additional history exists COVID-19 Vaccine ( season) 2024 Influenza Vaccine (FLU shot) (Season Ended) 2025 Diabetes Screening 03/21/2026 03/21/2023, 0 12/07/2022, 01/19/2022, Additional history exists Colonoscopy 06/12/2027 06/12/2022, 11/2021, 01/28/2016, Additional history exists Colorectal Cancer Screening 06/12/2027 Lipid Panel 12/08/2027 12/07/2022, 01/08, 09/15/2021, Additional history exists RETIRED - COLONOSCOPY-EVERY 5 YRS AGES 18-100 Discontinued 06/12/2022, 06/12/2022, 01/28/2016, Additional history exists HPV (Gardasil) Vaccine Aged Out No lo nger eligible based on patient's age to complete this topic Hepatitis B Vaccine Aged Out No longe r eligible based on patient's age to complete this topic MENINGOCOCCAL (MENACTRA/MENVEO) Aged Out No longer eligible based on patient's age to complete this topic Meningitis B Vaccine (Bexsero/Trumemba) Aged Out No longer eligible based on patient's age to complete this topic documented as of this encounter Medical Devices Not on filedocumented as of this encounter Care Teams Tip Finisher Relationship Specialty [place] [address] [place] [address] [place] [address] PCP - General Family Medicine 04/20/24 documented as of this encounter
[2025-01-05] MEDS: VANCOMYCIN HCL 1,750 MG in SODIUM CHLORIDE 0.9% 500 ML IV SCH (07:23)
[2025-01-05] MEDS: LR 15ML/HR IV SCH (07:23)
[2025-01-05] MEDS: GABAPENTIN 600 MG DOSE PO SCH (07:25)
[2025-01-05] MEDS: ACETAMINOPHEN 500 MG TAB PO SCH (07:25)
[2025-01-05] MEDS: CeleBREX 200 MG CAP PO SCH (07:25)
[2025-01-05] MEDS: LR 60ML/HR IV SCH (07:25)
[2025-01-05] MEDS ORDERED: ePHEDrine sulfate 50 MG/ML AMP IV PRN (08:39)
[2025-01-05] MEDS ORDERED: fentaNYL citrate PF 100 MCG/2 ML VIAL IV PRN (08:39)
[2025-01-05] MEDS ORDERED: ATROPINE SULFATE 0.1 MG/ML 10ML SYR IV PRN (08:39)
[2025-01-05] MEDS ORDERED: PROMETHAZINE HCL 6.25 MG in SODIUM CHLORIDE 0.9% 50 ML IV PRN (08:39)
[2025-01-05] MEDS ORDERED: ONDANSETRON INJ 2 MG/ML 2 ML VIAL ONE (09:22)
[2025-01-05] MEDS ORDERED: ROCURONIUM BROMIDE 10 MG/ML 5 ML VIAL IV ONE ×2 (09:22→11:50)
[2025-01-05] MEDS ORDERED: LIDOCAINE 2% 2 ML VIAL/AMP(20MG/ML) INFIL ONE (09:22)
[2025-01-05] MEDS ORDERED: PROPOFOL IV EMULSION 10 MG/ML 20 ML VIAL IV ONE (09:22)
[2025-01-05] MEDS ORDERED: DEXAMETHASONE SOD INJ 4 MG/ML VIAL ONE (09:22)
[2025-01-05] MEDS ORDERED: fentaNYL citrate PF 100 MCG/2 ML VIAL ONE ×2 (09:22→11:44)
[2025-01-05] MEDS ORDERED: MIDAZOLAM HCL 1 MG/ML 2ML VIAL ONE (09:22)
--- NOTE | 2025-01-05 10:38 | History & Physical Bridge Note ---
Date of Service January 05, 2025 History & Physical Bridge Note I have examined the patient, reviewed the History & Physical and in the interval since the performance of the History & Physical I have noted the following changes of clinical significance: no changes noted
--- NOTE | 2025-01-05 10:39 | History & Physical Report ---
Date of Service January 05, 2025 Assessment & Plan (1) Cervical radiculopathy: Plan: Anterior cervical discectomy and fusion C4-C5 History of Present Illness Chief Complaint: Neck and arm pain Primary Care Provider: Neris Floyd MD This is a 64-year-old female well-known to the presents with chronic persistent neck and arm pain after failing course of nonoperative care is here for surgical invention. Allergies Allergy/AdvReac Type Severity Reaction Status Date / Time Penicillins Allergy Severe Anaphylaxis Verified 01/05/25 07:13 Egg Derived Allergy Intermediate Hives, Verified 01/05/25 07:13 itching tramadol Allergy Intermediate Pruritis Verified 01/05/25 07:13 Home Medications Medication Instructions Recorded Confirmed Type pantoprazole 40 mg tablet,delayed 40 mg PO QAM 03/21/23 01/05/25 History release cholecalciferol (vitamin D3) 50 50 mcg PO DAILY 08/20/24 01/05/25 History mcg (2,000 unit) capsule (Vitamin D3) docusate sodium 100 mg capsule 200 mg PO BID PRN Constipation 08/20/24 01/05/25 History (Stool Softener) famotidine 20 mg tablet 20 mg PO QAM #90 tabs 09/22/24 01/05/25 Rx oil of oregano 6,000 mg PO BID 12/18/24 01/05/25 History pregabalin 75 mg capsule (Lyrica) 75 mg PO QAM #90 caps 12/18/24 01/05/25 Rx amitriptyline 100 mg tablet 100 mg PO BID 01/01/25 01/05/25 History duloxetine 60 mg capsule,delayed 60 mg PO DAILY 01/01/25 01/05/25 History release montelukast 10 mg tablet 10 mg PO QAM 01/01/25 01/05/25 History (Singulair) trazodone 50 mg tablet 50 - 100 mg (1 - 2 x 50 mg) PO HS 01/05/25 Rx PRN insomnia #30 tabs Past Med/Surg History Problem List Encounter for medication counseling Tremor Cognitive and behavioral changes Ambulatory dysfunction (Acute) Neuroforaminal stenosis of cervical spine R C4-5 - severe Cervical post-laminectomy syndrome Cervical radiculopathy Restless leg syndrome Numbness and tingling in both hands Insomnia Depression with anxiety Encounter for pre-operative examination Neuropathy Hyperlipidemia GERD (gastroesophageal reflux disease) Anxiety Lumbar stenosis with neurogenic claudication Cervical stenosis of spinal canal Bladder cancer (Acute) Medical History Hx of fall 10/2024 [facility] - [place] [facility] - no recent [place] Tremor [facility] Cognitive and behavioral changes [facility] - "unremarkable brain MRI" Ambulatory dysfunction pt denies using walker, cane, wheelchair Morbid obesity History of diverticulitis Per remote records Diverticular disease Neuroforaminal stenosis of cervical spine Sleep apnea Patient was to receive device but never did (would now need to retest in order to place order again for device) Hx of colonic polyps Hx of bladder cancer , chemo Poor historian Hx-TIA (transient ischemic attack) Possible TIA/CVA 2013- after bladder cancer procedure RLS (restless legs syndrome) Neuropathy Insomnia Hyperlipidemia GERD (gastroesophageal reflux disease) Depression with anxiety Lung abnormality Noted on 2022 imaging per patient Unremarkable 11/08/23 CT Lung, 10/2024 CXR Cervical stenosis of spinal canal Degenerative disc disease Osteoarthritis Lumbar stenosis with neurogenic claudication Surgical History Hx of cholecystectomy Per records Hx of cystoscopy found bladder ca Hx of colonoscopy with polypectomy Hx of cervical spine surgery 2022, C5-C7 2020, C6-C7 Limited ROM History of tooth extraction upper/lower denture History of carpal tunnel release right History of esophagogastroduodenoscopy (EGD) History of endoscopic sinus surgery History of lumbar surgery ~, "the last 3 discs in her back" S/P tonsillectomy and adenoidectomy History of appendectomy H/O: hysterectomy Family History Denies family history of Ovarian cancer Prostate cancer Diabetes Myocardial infarction Breast cancer Colorectal cancer Hypertension Social History Smoking Status: Current every day smoker Tobacco Type: Cigarettes Age Started Using Tobacco: 15; packs per day: 0.5; Cigarettes Per Day: 1/2 pack; Second Hand Exposure: No; Do You Dip or Chew Tobacco: No; Tobacco Cessation Education Requested by Patient: No Hx Alcohol Use: No Hx Substance Use: No Preferred Language: Eritrean Communication Ability: Effective Visual Impairment: Limited Hearing Ability: Normal Adult Caregiver Required: No Beliefs That Will Affect Care: None marital status: Current Living Situation: Family current occupational status: unemployed and disabled How many Children do You have: 1 Other Information That Helps Us Care for You: No Feels Safe at Home: Yes Safety Concerns: Feels Safe At This Time Childhood Exposure to Second-Hand Smoke: No caffeine: Yes during the past year weight has: remained stable Dental Care, Regularly: No Physical Activity Frequency: 3-4 Times per Week Seatbelt Use: never Sunscreen Use: No Assistive Devices: Denture - Upper, Denture - Lower and Glasses Physical Exam Physical Exam: Patient is alert and oriented Heart regular rhythm Lungs clear Results & Data Results & Data Vital Signs (Past 12 Hours) Vital Signs Temp Pulse Resp BP Pulse Ox O2 Del Method 01/05/25 07:15 36.9 C 89 18 118/77 97 Room Air
[2025-01-05] MEDS ORDERED: SUGAMMADEX SODIUM 200 MG/2 ML VIAL IV ONE (11:45)
[2025-01-05] MEDS: ceFAZolin 330 MG/ML 1 GM VIAL ONE (11:56)
--- NOTE | 2025-01-05 12:16 | Operative Report ---
Post Operative Report Pre & Post Diagnosis Operation Date: 01/05/25 10:05 Pre-Op Diagnosis: Cervical Spondylosis with Radiculopathy Post-Op Diagnosis: Cervical Spondylosis with Radiculopathy I identified the patient and participated in the time-out.: Yes Procedure Operation Date: 01/05/25 10:05 Actual Procedures #1 anterior cervical discectomy with bilateral foraminotomies C4-C5. #2 anterior cervical arthrodesis C4-C5 open #3 placement Spira 9 mm stand-alone cage C4-C5 filled with os design bone graft. Surgeon Emerson Hernandez, DO Line Assembly Utility Worker Anitha Hess Estimated Blood Loss 10 Findings See Below The patient is 5 foot 4 weighing over 103 kg with a BMI in excess of 39. The patient's body was did contribute to significant technical difficulty with positioning exposure the procedure itself. This had at least 50% increased operative time. Specimens None Indications Patient is a 64-year-old female well-known to me who presents with the above- mentioned diagnosis after failing course of nonoperative care is here for surgical invention. Description of Procedure Patient was met with identified informed consent obtained. Patient was then taken to the operative suite underwent sedation placed in supine position the Ced table with head in the Pruett head over. All bony prominences well- padded eyes inspected to ensure no external pressure placed upon them. This point anterior cervical spine was prepped and draped in the normal sterile fashi on. The assistance of fluoroscopy identified the C4-C5 disc space and a transverse incision was placed along the right anterior aspect of the cervical spine overlying his region. Blunt dissection with the assistance of bipolar electrocautery was formed down to and exposing the C4-5 disc space. A self- retaining retractor was placed. Then formed a complete discectomy at C4-C5 including removal of all posterior annular fibers and longitudinal ligament bilateral foraminotomies to address all neural compression. Endplates were then burred to subcortical bleeding bone and a 9 mm Spira stand-alone cage was tapped into position and 16mm screws placed with the assistance of fluoroscopy. The incision was then copiously irrigated explored to ensure no damage to surrounding structures or remaining bleeding. 10 round BAMBI drain inserted. The incision was then closed with 2 Vicryl in the fashion of 4 Monocryl for fascial closure. Steri-Strips sterile dressing placed. Patient waken taken to PACU in stable condition. Please note spinal cord monitoring was utilized at the procedure no changes noted. Anitha Hess was present at the entire surgery and while the patient positioning complex portion of the surgery and final skin closure. Im ordering 10 grams of Collagen Powder ([facility] A6010 Primary Dressing) and 10 bordered super absorbent ([facility] A6196 Secondary Dressing) to treat an incision wound that was caused by a spine procedure. The incision is approximately 2 cm(W) x 4 cm(L) down to the spinal column and epidural space 2 cm (D) in size and is a full thickness wound showing no signs of infection. Collagen comes in 1 gram packets so 10 packets were ordered. Given the size of the wound, with moderate exudate I chose to order a 10 day supply. The patient will be provided instructions for proper application of the collagen wound kit. The patient will be asked to apply the collagen powder daily and then cover it with sterile dressings dispensed. Collagen was selected as I expect the collagen to attract monocytes and fibroblasts, act as a sacrificial substrate for MMPs, and ultimately proved a matrix for tissue and vessel growth. The collagen will act as a primary dressing in this scenario. It is medically necessary for proper healing of these wounds to improve bioavailability and contact with each wound surface, this is also to help prevent infection of wounds and promote healing ultimately leading to a better healing outcome and limit the risk of infection. I attest to the content of the Intraoperative Record and any orders documented therein. Any exceptions are noted below.
[2025-01-05] MEDS: ONDANSETRON INJ 2 MG/ML 2 ML VIAL IV PRN (12:47)
--- NOTE | 2025-01-05 13:02 | Fluoroscopy Report ---
FL cervical 2-3V CLINICAL HISTORY: C4-5 ANT CERVICAL DISCECTOMY AND FUSION COMPARISON STUDY: Cervical spine MRI June 12, 2024. Cervical spine CT October 15, 2024. Fluoroscopy time: 28 seconds. Number of fluoroscopic images: 2 Ka,r: 11.55 mGy. FINDINGS: Exact localization is difficult given partial visualization of the cervical spine. Previous hardware at the C6-C7 level is noted. Interval anterior discectomy and fusion is present. Linear rad iodensity within the operative bed on the initial image is not present on the subsequent image. Endot dajuan tube is partially imaged. IMPRESSION: Fluoroscopy provided during anterior discectomy and fusion, likely at the C4-C5 level. ACT 112: Negative or not required by law. Electronically signed by: Vicente Goldman M.D. 01/05/2025 1:01 PM
--- NOTE | 2025-01-05 13:34 | Anesthesiology Progress Note ---
Date of Service January 05, 2025 Anesthesia Post Procedure Vital Signs Vital Signs: Temp Pulse Pulse Resp BP BP Pulse Ox 01/05/25 13:20 37.0 C 85 15 123/58 L 92 01/05/25 13:05 86 14 123/57 L 92 01/05/25 12:55 86 14 128/75 94 01/05/25 12:45 86 19 146/59 H 97 01/05/25 12:35 89 19 138/43 L 95 01/05/25 12:28 36.5 C 90 16 141/48 H 94 01/05/25 07:15 36.9 C 89 18 118/77 97 O2 Del Method O2 Flow Rate 01/05/25 13:20 Room Air 0 01/05/25 13:05 Oxymask 2 01/05/25 12:55 Oxymask 4 01/05/25 12:45 Oxymask 4 01/05/25 12:35 Oxymask 9 01/05/25 12:28 Oxymask 9 01/05/25 07:15 Room Air Transfer of Care Handoff Completed per policy Notes Mental Status: alert / awake / arousable Patient Amnestic to Procedure: Yes Nausea / Vomiting: adequately controlled Pain: adequately controlled Airway Patency, RR, SpO2: stable & adequate BP & HR: stable & adequate Hydration State: stable & adequate Anesthetic Complications: no major complications apparent
[2025-01-05] MEDS ORDERED: METOCLOPRAMIDE HCL INJ 5 MG/ML 2 ML VIAL IV PRN (14:04)
[2025-01-05] MEDS ORDERED: diphenhydrAMINE Capsule 25 MG CAP PO PRN (14:04)
[2025-01-05] MEDS ORDERED: NALOXONE HCL 0.4 MG/1 ML VIAL/CARP IV PRN (14:04)
[2025-01-05] MEDS ORDERED: MAGNESIUM HYDROXIDE SUSP 30 ML UDC PO PRN (14:04)
[2025-01-05] MEDS ORDERED: ALUMINUM/MAGNESIUM SUSP 30 ML UDC PO PRN (14:04)
[2025-01-05] MEDS ORDERED: LORazepam 0.5 MG TAB PO PRN (14:04)
[2025-01-05] MEDS ORDERED: ONDANSETRON INJ 2 MG/ML 2 ML VIAL IV PRN (14:04)
[2025-01-05] MEDS ORDERED: ACETAMINOPHEN 500 MG TAB PO PRN (14:04)
[2025-01-05] MEDS ORDERED: SOD PHOSPHATE/SOD BIPHOSPHATE ENEMA 132 ML BTL PR PRN (14:04)
[2025-01-05] MEDS ORDERED: HYDROmorphone INJ 1 MG/ML SYRINGE IV PRN (14:04)
[2025-01-05] MEDS ORDERED: PROMETHAZINE 12.5 MG/50.5 ML BAG IV PRN (14:04)
[2025-01-05] MEDS ORDERED: ONDANSETRON 4 MG OD TAB PO PRN (14:04)
[2025-01-05] MEDS ORDERED: RACEPINEPHRINE 2.25% NEBU SOLN 0.5 ML VIAL INH PRN (14:04)
[2025-01-05] MEDS ORDERED: bisacodyL 10 MG SUPP PR PRN (14:04)
[2025-01-05] MEDS ORDERED: ACETAMINOPHEN 1,000 MG/100 ML VIAL IV PRN (14:04)
[2025-01-05] MEDS ORDERED: FAMOTIDINE 20 MG TAB PO PRN (14:04)
[2025-01-05] MEDS ORDERED: DO NOT ADMINISTER FLU VACCINE PRN (14:04)
[2025-01-05] MEDS ORDERED: LORazepam 2 MG/1 ML VIAL IV PRN (14:04)
[2025-01-05] MEDS ORDERED: hydrOXYzine HCl 25 MG TAB PO PRN (14:04)
[2025-01-05] MEDS ORDERED: dexAMETHasone 8 MG in SYRINGE 0 ML IV PRN (14:04)
[2025-01-05] MEDS ORDERED: DO NOT ADMINISTER PNEUMOCOCCAL VACCINE PRN (14:04)
[2025-01-05] MEDS: HYDROmorphone INJ 0.5 MG/0.5 ML SYR IV PRN (14:16)
--- NOTE | 2025-01-05 15:30 | Hospitalist Consultation ---
Date of Consultation January 05, 2025 Assessment & Plan (1) Neuroforaminal stenosis of cervical spine: (2) Restless leg syndrome: (3) Insomnia: (4) Depression with anxiety: (5) Hyperlipidemia: (6) GERD (gastroesophageal reflux disease): (7) Neuropathy: Plan 64 yo female PMHx RLS, Insomnia, Anxiety/Depression, HLD, GERD, neuropathy, Bladder CA. #Post-Op Status Pain well controlled on current regimen Post op care per surgery #Anxiety Continue amitriptyline, duloxetine #GERD Pantoprazole, famotidine #Insomnia Trazodone HS #HLD Not currently on statin therapy FENGI: clears, advance as tolerated Code status: full DVT prophylaxis: scds, defer chemical prophylaxis in post op state Isolation: none Disposition: med/surg Supervising Physician Co-Signing Physician Notes ATTESTATION I also saw the patient with Dr. Teran and confirmed peres portions of the history and exam. I agree with the impression and plan in the resident documentation, and as summarized below. Patient seen post op and is without complaints at present. History of cervical neuroforaminal stenosis, and ambulatory dysfucntion. Follows with [facility] for primary care; [facility] for neuropathy and RLS. EXAM 145/68, 81, 16, afebrile NAD CV RRR Lungs CTA with non labored respirations DATA Labs Pre Op HgB 13.1 (12/18/24) BMP unremarkable B12 690 TSH 2.885 IMPRESSION & PLAN S/P cervical spine surgery, POD #0 Anxiety GERD Insomia RLS Continue home medications Pain control via surgery service Thank you for the consultation, will follow along with you Additional per resident documentation History of Present Illness Reason for Consultation: Med Management Requesting Physician: Dr. Hernandez Attending Physician: Emerson Hernandez, DO History of Present Illness 64 yo female PMHx RLS, Insomnia, Anxiety/Depression, HLD, GERD, neuropathy, Bladder CA. Medicine is consulted to medication management. Patient is POD-0 s/p C4-C5 Anterior Cervical Discectomy Fusion, Spinal Cord Monitoring. Patient seen and evaluated at bedside. States she is feeling relatively well after surgery, pain is reasonably controlled. Allergies Allergy/AdvReac Type Severity Reaction Status Date / Time Penicillins Allergy Severe Anaphylaxis Verified 01/05/25 07:13 Egg Derived Allergy Intermediate Hives, Verified 01/05/25 07:13 itching tramadol Allergy Intermediate Pruritis Verified 01/05/25 07:13 Home Medications Medication Instructions Recorded Confirmed Type pantoprazole 40 mg tablet,delayed 40 mg PO QAM 03/21/23 01/05/25 History release cholecalciferol (vitamin D3) 50 50 mcg PO DAILY 08/20/24 01/05/25 History mcg (2,000 unit) capsule (Vitamin D3) docusate sodium 100 mg capsule 200 mg PO BID PRN Constipation 08/20/24 01/05/25 History (Stool Softener) famotidine 20 mg tablet 20 mg PO QAM #90 tabs 09/22/24 01/05/25 Rx oil of oregano 6,000 mg PO BID 12/18/24 01/05/25 History pregabalin 75 mg capsule (Lyrica) 75 mg PO QAM #90 caps 12/18/24 01/05/25 Rx amitriptyline 100 mg tablet 100 mg PO BID 01/01/25 01/05/25 History duloxetine 60 mg capsule,delayed 60 mg PO DAILY 01/01/25 01/05/25 History release montelukast 10 mg tablet 10 mg PO QAM 01/01/25 01/05/25 History (Singulair) trazodone 50 mg tablet 50 - 100 mg (1 - 2 x 50 mg) PO HS 01/05/25 Rx PRN insomnia #30 tabs Patient History Medical History Hx of fall 10/2024 [facility] ER - followed up with [facility] - no recent falls Tremor [facility] Cognitive and behavioral changes [facility] - "unremarkable brain MRI" Ambulatory dysfunction pt denies using walker, cane, wheelchair Morbid obesity History of diverticulitis Per remote records Diverticular disease Neuroforaminal stenosis of cervical spine Sleep apnea Patient was to receive device but never did (would now need to retest in order to place order again for device) Hx of colonic polyps Hx of bladder cancer , chemo Poor historian Hx-TIA (transient ischemic attack) Possible TIA/CVA 2013- after bladder cancer procedure RLS (restless legs syndrome) Neuropathy Insomnia Hyperlipidemia GERD (gastroesophageal reflux disease) Depression with anxiety Lung abnormality Noted on 2022 imaging per patient Unremarkable 11/08/23 CT Lung, 10/2024 CXR Cervical stenosis of spinal canal Degenerative disc disease Osteoarthritis Lumbar stenosis with neurogenic claudication Surgical History Hx of cholecystectomy Per records Hx of cystoscopy found bladder ca Hx of colonoscopy with polypectomy Hx of cervical spine surgery 2022, C5-C7 2020, C6-C7 Limited ROM History of tooth extraction upper/lower denture History of carpal tunnel release right History of esophagogastroduodenoscopy (EGD) History of endoscopic sinus surgery History of lumbar surgery ~, "the last 3 discs in her back" S/P tonsillectomy and adenoidectomy History of appendectomy H/O: hysterectomy Family History Denies family history of Ovarian cancer Prostate cancer Diabetes Myocardial infarction Breast cancer Colorectal cancer Hypertension Social History Smoking Status: Current every day smoker Tobacco Type: Cigarettes Age Started Using Tobacco: 15; packs per day: 0.5; Cigarettes Per Day: 1/2 pack; Second Hand Exposure: No; Do You Dip or Chew Tobacco: No; Tobacco Cessation Education Requested by Patient: No Hx Alcohol Use: No Hx Substance Use: No Preferred Language: Azerbaijani Communication Ability: Effective Visual Impairment: Limited Hearing Ability: Normal Client Development Manager Required: No Beliefs That Will Affect Care: None marital status: Current Living Situation: Family current occupational status: unemployed and disabled How many Children do You have: 1 Other Information That Helps Us Care for You: No Feels Safe at Home: Yes Safety Concerns: Feels Safe At This Time Childhood Exposure to Second-Hand Smoke: No caffeine: Yes during the past year weight has: remained stable Dental Care, Regularly: No Physical Activity Frequency: 3-4 Times per Week Seatbelt Use: never Sunscreen Use: No Assistive Devices: Denture - Upper, Denture - Lower and Glasses Review of Systems Review of Systems: reviewed, per HPI Physical Exam Physical Exam: Constitutional: age appropriate, no acute distress HEENT: NCAT, no conjunctival injection CV: regular rhythm, extremities well-perfused, no LE edema Resp: CTABL, no wheezes/rales/rhonchi appreciated, no increased work of breathing GI: soft, nondistended, nontender MSK: no gross deformities appreciated Skin: warm, dry, no rash appreciated Neuro: alert, oriented, no focal neurologic deficit appreciated Results & Data Results & Data Vital Signs (Past 12 Hours) Vital Signs Temp Pulse Pulse Resp BP BP Pulse Ox 01/05/25 15:12 36.9 C 81 16 145/68 H 96 01/05/25 14:35 80 18 96 01/05/25 14:31 37.0 C 80 16 108/58 L 96 01/05/25 14:00 37.0 C 82 18 104/68 95 01/05/25 13:45 83 17 105/39 L 95 01/05/25 13:35 83 20 109/49 L 95 01/05/25 13:20 37.0 C 85 15 123/58 L 92 01/05/25 13:05 86 14 123/57 L 92 01/05/25 12:55 86 14 128/75 94 01/05/25 12:45 86 19 146/59 H 97 01/05/25 12:35 89 19 138/43 L 95 01/05/25 12:28 36.5 C 90 16 141/48 H 94 01/05/25 07:15 36.9 C 89 18 118/77 97 O2 Del Method O2 Flow Rate 01/05/25 15:12 Nasal Cannula 2 01/05/25 14:35 Nasal Cannula 2 01/05/25 14:31 Nasal Cannula 2 01/05/25 14:00 Nasal Cannula 01/05/25 13:45 Nasal Cannula 2 01/05/25 13:35 Nasal Cannula 2 01/05/25 13:20 Room Air 0 01/05/25 13:05 Oxymask 2 01/05/25 12:55 Oxymask 4 01/05/25 12:45 Oxymask 4 01/05/25 12:35 Oxymask 9 01/05/25 12:28 Oxymask 9 01/05/25 07:15 Room Air Resident Activity Tracking Resident Involvement: Resident Care Provided Care Provided: Adult Hospital Medicine (3) Insomnia Insomnia type: primary Qualified Code(s): F51.01 - Primary insomnia (5) Hyperlipidemia Hyperlipidemia type: mixed hyperlipidemia Qualified Code(s): E78.2 - Mixed hyperlipidemia (6) GERD (gastroesophageal reflux disease) Esophagitis presence: without esophagitis Qualified Code(s): K21.9 - Gastro- esophageal reflux disease without esophagitis
[2025-01-05] MEDS ORDERED: traZODone HCL 50 MG TAB PO PRN (15:41)
[2025-01-05] MEDS: CLINDAMYCIN/D5W 600 MG/50 ML BAG IV SCH (17:40)
[2025-01-05] MEDS: DOCUSATE SODIUM/SENNA 50/8.6MG TAB PO SCH (20:56)
[2025-01-05] MEDS: oxyCODONE HCL IR 5 MG TAB (IMMEDIATE RELEASE) PO PRN (20:57)
[2025-01-05] MEDS: AMITRIPTYLINE HCL 100 MG TAB PO SCH (20:57)
[2025-01-06] MEDS: POLYETHYLENE (MIRALAX) 17 GM PACK PO SCH (05:08)
[2025-01-06] MEDS: PREGABALIN 75 MG CAP PO SCH (08:09)
[2025-01-06] MEDS: MONTELUKAST SODIUM 10 MG TABLET PO SCH (08:10)
[2025-01-06] MEDS: CHOLECALCIFEROL 25 MCG (1000 UNITS) TAB PO SCH (08:10)
[2025-01-06] MEDS: PANTOprazole 40 MG TAB PO SCH (08:10)
[2025-01-06] MEDS: DULoxetine HCL 60 MG CAP PO SCH (08:10)
[2025-01-06] MEDS: FAMOTIDINE 20 MG TAB PO SCH (08:18)
--- NOTE | 2025-01-06 10:34 | Hospitalist Progress Note ---
Date of Service January 06, 2025 Assessment & Plan (1) Neuroforaminal stenosis of cervical spine: (2) Restless leg syndrome: (3) Insomnia: (4) Depression with anxiety: (5) Hyperlipidemia: (6) GERD (gastroesophageal reflux disease): (7) Neuropathy: Plan 64 yo female PMHx RLS, Insomnia, Anxiety/Depression, HLD, GERD, neuropathy, Bladder CA who presented for cervical radiculopathy s/p operative intervention. She is doing well with near complete resolution of her symptoms postoperatively. We are following for medication management of comorbidities. #Post-Op Status Pain adequately controlled Patient very pleased with the result of her surgery, denies pain/paresthesias in her arm Appropriate postoperative tenderness at her cervical incision site. Dressing C/D/I, collar in place Activity recommendations, DVT recommendations, pain control per primary team #Anxiety Continue amitriptyline, duloxetine #GERD Pantoprazole, famotidine #Insomnia Trazodone HS #HLD Not currently on statin therapy. Outpatient follow-up and serial monitoring. Doing well. Correct technique on spirometry use was instructed at bedside. No acute concerns. Lungs are clear, heart rate is regular. Comorbidities appropriately managed at this time. Adequate pain control at bedside. No ongoing concerns. Medicine will sign off, if any acute concerns develop please be consulted. Admission and Anticipated Discharge Date Admission Date: January 05, 2025 Subjective Seen at the bedside. Doing well. She reports her arm numbness and discomfort has completely resolved postoperatively. She is able to move her arm and is very pleased with her surgical result. No fevers chills or sweats overnight. She reports she does have some pain in her neck at her surgical site which is well-controlled with her current medications. Did discuss incentive spirometer, patient was taking very rapid high-pressure breaths. Teaching on correct I-S technique provided at bedside to which she is agreeable we will continue daily. No other acute concerns No chest pain, chest pressure. GERD well-controlled. No lightheadedness or dizziness. Physical Exam Physical Exam: General: A&Ox3. NAD. Cooperative. HEENT: Neck collar in place, cervical surgical dressing in place C/D/I Pulm: CTAB A&P. -wheezes, -rales, -rhonchi. Symmetrical chest rise. No increase in work of breathing. No respiratory distress. Cardiac: RRR, -mrg. Radial pulses intact and symmetrical. Extremities: Moves extremities equally. Strength symmetrical. Sensation to soft touch intact bilaterally. Results & Data Results & Data Vital Signs (Past 12 Hours) Vital Signs Temp Pulse Resp BP Pulse Ox O2 Del Method 01/06/25 09:10 36.7 C 85 17 136/74 94 Room Air 01/06/25 07:20 Nasal Cannula 01/06/25 07:10 36.7 C 80 17 124/71 96 Room Air 01/06/25 05:05 36.5 C 82 18 130/77 95 Room Air 01/06/25 03:25 75 18 96 Room Air 01/06/25 03:01 36.7 C 76 18 121/72 95 Room Air 01/06/25 01:03 36.8 C 82 18 128/76 95 Room Air 01/05/25 23:11 86 18 98 Room Air 01/05/25 23:03 36.8 C 79 18 125/76 94 Room Air PG Care Time/CCT Total # of Minutes Spent Total Time Spent with Patient: Total time spent is greater than 50% in coordination of care (as documented) at patient's floor/unit and/or counseling patient: Coding Level of Care Code 45721 SUB INP/OBS CARE 2/35MIN Diagnoses Neuroforaminal stenosis of cervical spine M48.02 Restless leg syndrome G25.81 Primary insomnia F51.01 Insomnia type: primary Depression with anxiety F41.8 Mixed hyperlipidemia E78.2 Hyperlipidemia type: mixed hyperlipidemia Gastroesophageal reflux disease without esophagitis K21.9 Esophagitis presence: without esophagitis Neuropathy G62.9 (3) Insomnia Insomnia type: primary Qualified Code(s): F51.01 - Primary insomnia (5) Hyperlipidemia Hyperlipidemia type: mixed hyperlipidemia Qualified Code(s): E78.2 - Mixed hyperlipidemia (6) GERD (gastroesophageal reflux disease) Esophagitis presence: without esophagitis Qualified Code(s): K21.9 - Gastro- esophageal reflux disease without esophagitis
[2025-01-06 11:08] VITALS: RESP 17
--- NOTE | 2025-01-06 12:11 | Discharge Summary ---
Date of Service January 06, 2025 Admission HPI Per Admitting Provider This is a 64-year-old female well-known to the presents with chronic persistent neck and arm pain after failing course of nonoperative care is here for surgical invention. Principal Diagnosis Cervical spondylosis with radiculopathy Discharge Data Allergies Allergy/AdvReac Type Severity Reaction Status Date / Time Penicillins Allergy Severe Anaphylaxis Verified 01/05/25 07:13 Egg Derived Allergy Intermediate Hives, Verified 01/05/25 07:13 itching tramadol Allergy Intermediate Pruritis Verified 01/05/25 07:13 Consultations 01/05/25 14:04 Consult Hospitalist Routine Procedures Performed Operation Date: 01/05/25 10:05 Actual Procedures p C4-C5 Anterior Cervical Discectomy and Fusion, Spinal Cord Monitoring(Not Ap plicable) - Emerson Hernandez DO Ordered Studies 01/05/25 10:05 FL cervical 2-3V Routine Hospital Course (1) Neuroforaminal stenosis of cervical spine: Patient underwent anterior cervix ectomy fusion tolerated as well as taken orthopedic for postoperative. Postop day #1 she is swallowing well. No hoarseness. Arm symptoms neck pain markedly improved. Extra strength testing. Subsidy discharged home. Discharge orders and instructions on the chart for further review. Total Time Total Time Spent Total Time Spent (In Minutes): 20 minutes Discharge Plan Discharge Items Patient Disposition: Home - Self-Care Reason For Visit: Cervical Spondylosis with Radiculopathy Discharge Diagnosis: Lumbar spondylosis with radiculopathy Activity: As commented below Non-emergency contact: Primary Care Provider Call non-emergency contact if: you have any medication questions Follow-up/Referrals: Neris Floyd MD [Primary Care Provider] - Diet: Regular Addtl Attending Provider Instructions: ACTIVITY RECOMMENDATIONS: SELF CARE INSTRUCTIONS AFTER CERVICAL FUSIONS 1. No smoking. Smoking drastically decreases the chance of a solid fusion. 2. No bending, lifting more than 5 pounds, or twisting (roll like a log when turning in bed). 3. You may shower 3 days after surgery. Thoroughly dry wound. Do not soak in the tub. 4. Cervical collar: Must be worn at all times including sleeping. You may remove the brace only to bath, eat and if you are sitting in a recliner. 5. Please walk as much as you can for exercise. Gradually increase the distance that you walk as your endurance increases. 6. You may return to previous diet. SPECIAL CARE INSTRUCTIONS: VERY IMPORTANT TO READ AND REVIEW A. Do not take any anti-inflammatory medications (i.e. Indocin, Advil, Aspirin, Naprosyn, Aleve, Motrin, etc.) as these may inhibit the chance of a solid fusion. Tylenol is okay to take. B. Your surgical incision has been closed with a cosmetic suture under the skin that will dissolve in about 6 weeks. In 14 days, you can use a pair of clean scissors and cut the suture that is left outside of the skin at the ends of your incision. C. Complications are uncommon, but please contact us if you have any signs or symptoms of: 1. wound infection (fever higher than 102.5 degrees F, redness, separation of wound, drainage, or increasing pain from the incision) 2. blood clots in legs (pain, swelling, redness and warmth in legs) 3. urinary tract infection (fever higher than 102.5 degrees, burning upon urination or increased frequency of urination) 4. nerve problems (inability to walk on your toes or heels, numbness, loss of bowel or bladder control) 5. any other symptoms that concern you. D. Please call the office at if you have any concerns or questions about your operation or recovery. MANAGING PAIN AFTER SPINAL SURGERY 1. Narcotic medication is intended for short-term use and will be provided for surgical pain. Surgical pain usually lasts for a period of 4-6 weeks. Narcotic medication includes Percocet, Vicodin, Darvocet, Tylenol #3 or Lortab. 2. Longer-term pain is more appropriately treated with non-narcotic medication such as Tylenol ES. 3. Muscle spasm is not appropriately treated with narcotics. Muscle relaxers such as Soma, Flexeril or Skelaxin can be used along with Tylenol ES. 4. Remember that we all live with some "aches and pains". This is not unusual or uncommon after an injury or as we get older. 5. We will provide appropriate medication within the normal guidelines of their prescribed use. We will also be very cautious and aware of potential abuse and extended duration of patients' medication needs. 6. Please allow 2-3 days to process refills. Prescriptions will not be mailed but must be picked up at the office. FOLLOW UP VISIT: Keep your scheduled follow-up appointment. Any questions, please call the office at . Pending Studies at Discharge: No Stand-Alone Forms: My [facility], Smoking Cessation Medications and DC Order Prescriptions: New oxycodone 5 mg tablet 5 mg PO Q6H PRN (Reason: pain) Qty: 30 0RF Continued cholecalciferol (vitamin D3) [Vitamin D3] 50 mcg (2,000 unit) capsule 50 mcg PO DAILY famotidine 20 mg tablet 20 mg PO QAM Qty: 90 3RF pregabalin [Lyrica] 75 mg capsule 75 mg PO QAM Qty: 90 1RF trazodone 50 mg tablet 50 - 100 mg PO HS PRN (Reason: insomnia) Qty: 30 2RF Rx Instructions: 1 to 2 tabs orally at bedtime; PRN; oil of oregano 6,000 mg PO BID pantoprazole 40 mg Tablet,Delayed Release (Dr/Ec) 40 mg PO QAM docusate sodium [Stool Softener] 100 mg capsule 200 mg PO BID PRN (Reason: Constipation) amitriptyline 100 mg Tablet 100 mg PO BID duloxetine 60 mg Capsule,Delayed Release(Dr/Ec) 60 mg PO DAILY montelukast [Singulair] 10 mg tablet 10 mg PO QAM Discharge Orders: Discharge Order (Routine); Ordered 01/06/25 Ordered By: Emerson Hernandez Admission Data Admit Date/Time: 01/05/25 12:21 Attending Provider: Emerson Hernandez Admit Provider: Emerson Hernandez Primary Care Provider: Neris Floyd Other Providers: Alexys Alcantara
[2025-01-06 13:21] VITALS: BP 129/77; PULSE 88; TEMP 98.8; O2SAT 96
== END 2025-01-06 14:06 | disposition home or self-care (01) | DRG 473 ==
LOC: ASU 06:46 → 3E 12:21